=== PATIENT | female | born 1940 | race Caucasian/White ===

== ENCOUNTER 2019-11-17 18:19 | Emergency (ER) | payer MEDICARE, SELFPAY ==
--- NOTE | ~2019-11-17 | XR_ITS ---
EXAMINATION: XR humerus LT INDICATION: Left shoulder pain, initial encounter TECHNIQUE: Two views of the left humerus are obtained. COMPARISON: None available FINDINGS: There is an acute, traumatic, closed, comminuted fracture of the left humeral head extendin g into the proximal shaft of the humerus. Bone alignment at the acromioclavicular joint is normal. No additional acute osseous findings are evident. Soft tissue swelling surrounds the fracture. IMPRESSION: 1. Comminuted fracture of the proximal humeral shaft and humeral head. Reviewed, dictated and finalized at location A.
[2019-11-17 18:29] VITALS: BP 182/49; PULSE 58; RESP 18; TEMP 36.3; O2SAT 99
[2019-11-17 19:19] VITALS: BP 153/60; PULSE 62; RESP 20; O2SAT 99
[2019-11-17] MEDS: IBUPROFEN 600 MG TABLET PO (19:47)
--- NOTE | 2019-11-17 20:46 | ED.UPPEXIN ---
HPI - Extremity Injury (Upper) General Chief Complaint: Extremity Injury, Upper Stated Complaint: L UPPER ARM INJURY S/P FALL Time Seen by Provider: 11/17/19 19:05 Source: patient Mode of arrival: ambulatory Limitations: no limitations History of Present Illness HPI narrative: This is a 71-year-old female that presents emergency department after a fall today with left arm pain. Reports she tripped over her bed skirt and landed on her left arm. Denies hitting her head or loss of consciousness. Since she has had pain in the upper arm and shoulder. Also reports some low back pain that is chronic for her. Denies weakness or numbness. Related Data Allergies Allergy/AdvReac Type Severity Reaction Status Date / Time No Known Allergies Allergy Mild Verified 11/17/19 19:17 Review of Systems Review of Systems: Narrative: CONSTITUTIONAL: Denies fever CARDIOVASCULAR: Denies chest pain RESPIRATORY: Denies dyspnea. MUSCULOSKELETAL: Reports back pain, joint pain, and myalgia. NEUROLOGIC: Denies numbness, or weakness. All systems reviewed & are unremarkable except as noted in HPI and below PMFSH Family History Family History (Updated 08/19/14 @ 10:32 by DOCTOR UNKNOWN) Other Diabetes mellitus Hypertension Social History Social History Smoking status: Never smoker Alcohol intake: current Gender identity (if verbalized by the patient): Female Exam Narrative: Exam Narrative: GENERAL: Well-appearing, well-nourished, and in no acute distress. HEAD: Normocephalic, atraumatic. EYES: PERRLA and EOMI. ENT: Nares clear, no rhinorrhea or epistaxis. Mucous membranes moist. Oropharynx without tonsillar hypertrophy exudate or other lesions. Bilateral TMs pearly ulrich non-bulging NECK: Supple. No adenopathy or masses. No midline spinal tenderness CHEST: Clear to auscultation. No respiratory distress. No wheezes rales or rhonchi HEART: Regular rate and rhythm. No murmur heard. Normal peripheral pulses. BACK: No midline spinal tenderness EXTREMITIES: Normal range of motion, except decreased ROM in the left shoulder due to pain. No edema or erythema. SKIN: Warm, dry, no rash. NEURO: No focal deficits. Alert and oriented x3. PSYCH: Normal mood and affect Course Consultations Consultation #1: Spoke with Dr. High about patient and work-up will follow-up in clinic Date: 11/17/19 Time: 20:53 Vital Signs Vital signs: Vital Signs Temperature 97.4 F L 11/17/19 18:29 Pulse Rate 58 L 11/17/19 18:29 Respiratory Rate 18 11/17/19 18:29 Blood Pressure 182/49 H 11/17/19 18:29 Pulse Oximetry 99 11/17/19 18:29 Temperature 97.4 F L 11/17/19 18:29 Pulse Rate 62 11/17/19 19:19 Respiratory Rate 20 11/17/19 19:19 Blood Pressure 153/60 H 11/17/19 19:19 Pulse Oximetry 99 11/17/19 19:19 MDM - Extremity Injury (Upper) MDM Narrative Medical decision making narrative: Patient presents the emergency department after a fall today with left arm pain. Left humerus x-ray shows a comminuted fracture of the proximal humeral shaft and humeral head. Patient placed in a shoulder immobilizer. She also reported some low back pain. Reports this is chronic for her. Did not want any imaging of her lumbar spine done. Spoke with Dr. High about patient and work-up will follow-up in clinic. Patient is stable and felt appropriate for further outpatient evaluation. She was given warnings to return to the ER Imaging Data Radiologist's impression: ITS Impressions Humerus X-Ray 11/17/19 18:45 IMPRESSION: 1. Comminuted fracture of the proximal humeral shaft and humeral head. Critical Care Time Critical Care Time Critical Care Time: No Discharge Plan Discharge Clinical Impression: Closed comminuted fracture of left humerus Qualifiers: Encounter type: initial encounter Humerus Location: shaft Fracture alignment: displaced Qualified Code(s): S42.352A - Displaced comminuted fracture of shaft of arnaldo
[2019-11-17 20:55] VITALS: BP 148/66; PULSE 62; RESP 20; O2SAT 99
== END 2019-11-17 20:57 | disposition home or self-care (01) ==
PROVIDERS: Emergency Provider Emergency Medicine; PCP Family Medicine Adolescent Medicine
DX: S42.352A Displaced comminuted fracture of shaft of humerus, left arm, initial encounter for closed fracture (principal); W01.0XXA Fall on same level from slipping, tripping and stumbling without subsequent striking against object, initial encounter
CPT/HCPCS: 73060; 99284; A9270

== ENCOUNTER → 2020-02-21 12:07 | Outpatient (CLI) | payer MEDICARE, SELFPAY ==
--- NOTE | ~2020-02-21 | MM_ITS ---
EXAMINATION: MM screening van LT w kranthi HISTORY: Screening mammogram TECHNIQUE: Craniocaudal and mediolateral oblique 3-D tomosynthesis images were obtained and synthetic 2-D images were generated. CAD analysis was submitted and interpreted. COMPARISON: 12/03/2018, 11/14/2017, 10/31/2016 left digital screening mammogram examinations BREAST PARENCHYMAL COMPOSITION: There are scattered areas of fibroglandular density. FINDINGS: There is suggestion of possible interval subtle irregular increased density near the medial subareolar area of the left breast compared to prior examinations. Diagnostic left mammogram and lef t breast ultrasound examination are recommended. IMPRESSION: 1. Subtle interval increased irregular density suggested near the medial subareolar area of the left breast 2. Diagnostic left mammogram and left breast ultrasound examination are recommended. BI-RADS Category 0: Incomplete: Needs additional imaging evaluation. Reviewed, dictated and finalized at location A. IMPRESSION: 1. Subtle interval increased irregular density suggested near the medial subare olar area of the left breast 2. Diagnostic left mammogram and left breast ultrasound examination are recomme nded. BI-RADS Category 0: Incomplete: Needs additional imaging evaluation.
--- NOTE | ~2020-02-21 | DEXA_ITS ---
Bone Density Report Name: Lawanda Chi Age: 79 Sex: Female Ethnicity: White Date of : 1940 Indication: osteopenia; parental hip fracture; height loss; prior fracture; hysterectomy; postmenopausal Referring Provider: HAN MALONEY Study: Bone densitometry was performed. Exam Date: February 21, 2020 Accession number: [id number] Bone Density: Region BMD T-score Z-score Classification AP Spine (L1-L4) 1.154 1.0 3.6 Normal Femoral Neck (Left) 0.564 -2.6 -0.3 Osteoporosis Total Hip (Left) 0.716 -1.8 0.1 Osteopenia Femoral Neck (Right) 0.584 -2.4 -0.2 Osteopenia Total Hip (Right) 0.735 -1.7 0.3 Osteopenia Total Hip Mean 0.726 -1.8 0.2 Osteopenia World Health Organization criteria for BMD impression classify patients as: Normal (T-score at or above -1.0), Osteopenia (T-score between -1.0 and -2.5), or Osteoporosis (T-score at or below -2.5). 10-year Fracture Risk: FRAX not reported because: Some T-score for Spine Total or Hip Total or Femoral Neck at or below -2.5 Previous Exams: Region Exam Age BMD T-score BMD Change BMD Change Date g/cm2 vs Baseline vs Previous AP Spine(L1-L4) 02/21/2020 79 1.154 1.0 0.280* 0.107* 11/14/2017 77 1.046 0.0 0.173* 0.070* 10/28/2015 75 0.976 -0.6 0.102* 0.004 10/23/2013 72 0.972 -0.7 0.098* 0.041* 10/19/2011 70 0.930 -1.1 0.057* 0.020 10/21/2009 68 0.911 -1.2 0.037* 0.037* 09/14/2006 65 0.873 -1.6 Total Hip(Left) 02/21/2020 79 0.716 -1.8 0.023 0.012 11/14/2017 77 0.704 -1.9 0.011 0.002 10/28/2015 75 0.702 -2.0 0.008 0.024 10/23/2013 72 0.679 -2.2 -0.015 -0.100* 10/19/2011 70 0.779 -1.3 0.085* 0.083* 10/21/2009 68 0.696 -2.0 0.002 0.002 09/14/2006 65 0.694 -2.0 Total Hip(Right) 02/21/2020 79 0.735 -1.7 0.015 0.014 11/14/2017 77 0.721 -1.8 0.001 -0.018 10/28/2015 75 0.738 -1.7 0.019 0.027 10/23/2013 72 0.711 -1.9 -0.008 -0.047* 10/19/2011 70 0.758 -1.5 0.038* 0.049* 10/21/2009 68 0.709 -1.9 -0.010 -0.010 09/14/2006 65 0.720 -1.8 *Denotes significance at 95% confidence level, LSC for AP Spine = 0.022 g/cm2, LSC for Total Hip = 0.027 g/cm2 Clinical Information Provided by Patient:
== END ==
PROVIDERS: PCP Family Medicine Adolescent Medicine; Visit Provider Family Medicine Adolescent Medicine
DX: Z12.31 Encounter for screening mammogram for malignant neoplasm of breast (principal); Z78.0 Asymptomatic menopausal state; R92.8 Other abnormal and inconclusive findings on diagnostic imaging of breast; M81.0 Age-related osteoporosis without current pathological fracture; M85.852 Other specified disorders of bone density and structure, left thigh; M85.851 Other specified disorders of bone density and structure, right thigh
CPT/HCPCS: 77063; 77067; 77080

== ENCOUNTER 2020-03-16 11:59 | Outpatient (CLI) | payer MEDICARE, SELFPAY ==
--- NOTE | ~2020-03-16 | MMUS_ITS ---
EXAMINATION: MM diagnostic mammo unilat LT, US breast LT complete HISTORY: Subtle interval increased irregular density suggested near medial subareolar area of left br east on 02/21/2020 screening mammogram TECHNIQUE: Additional 3-D tomosynthesis images of the left breast were performed and synthetic 2-D im ages were generated. CAD analysis was submitted and interpreted. High resolution complete left breast ultrasound was performed. COMPARISON: 02/21/2020 bilateral digital screening mammogram FINDINGS: MAMMOGRAPHIC FINDINGS: No suspicious mass or architectural distortion, malignant calcification, skin thickening or retractio n is detected. ULTRASOUND: No suspicious mass or shadowing is evident. IMPRESSION: 1. No mammographic evidence of malignancy 2. Routine mammographic screening recommended. BI-RADS Category 1: Negative Reviewed, dictated and finalized at location A. IMPRESSION: 1. No mammographic evidence of malignancy 2. Routine mammographic screening recommended. BI-RADS Category 1: Negative
== END 2020-03-16 12:00 | disposition home or self-care (01) ==
LOC: ANHIMG 12:01
PROVIDERS: PCP Family Medicine Adolescent Medicine; Visit Provider Family Medicine Adolescent Medicine
DX: R92.8 Other abnormal and inconclusive findings on diagnostic imaging of breast (principal)
CPT/HCPCS: 76641; 77065

== ENCOUNTER → 2020-07-01 09:39 | Outpatient (CLI) | payer MEDICARE, SELFPAY ==
--- NOTE | ~2020-07-01 | XR_ITS ---
XR lumbar spine 2-3V DATE: 07/01/2020 10:05 INDICATION: Low back pain. No known injury. TECHNIQUE: AP, lateral, coned lateral lumbosacral views COMPARISON: None FINDINGS: There is diffuse osteopenia. There is mild dextro scoliosis of the lumbar spine. There is moderate loss of height biconcavity of T9 vertebral body. There is mild biconcavity of T10 vertebral body. There is mild loss of height and anterior wedging at T11. There is prominent loss of height and anterior wedging at L1 with prominent compression fracture. There is prominent degenerative change at the apophyseal joints in the lower lumbar spine, particular ly L4-5 and L5-S1, with associated grade 1 anterolisthesis at L4-5. There is moderately severe degenerative disc disease at L2-3, L3-4 and L5-S1 in particular. There is associated minimal retrolisthesis at L5-S1. The sacroiliac joints are intact. There is extensive calcification of the abdominal aorta, without evidence of aneurysm. IMPRESSION: Multiple compression fracture deformities of the lower thoracic spine and L1 Diffuse osteopenia Multilevel degenerative disc disease Degenerative change at the apophyseal joints in the lower lumbar and lumbosacral area with associated grade 1 anterolisthesis at L4-5 Reviewed, dictated and finalized at location A. 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
== END ==
PROVIDERS: PCP Family Medicine Adolescent Medicine; Visit Provider Family Medicine Adolescent Medicine
DX: M85.88 Other specified disorders of bone density and structure, other site (principal); M51.36 Other intervertebral disc degeneration, lumbar region; S32.010A Wedge compression fracture of first lumbar vertebra, initial encounter for closed fracture; S22.080A Wedge compression fracture of T11-T12 vertebra, initial encounter for closed fracture; X58.XXXA Exposure to other specified factors, initial encounter
CPT/HCPCS: 72100

== ENCOUNTER → 2021-06-01 11:16 | Outpatient (CLI) | payer MEDICARE, SELFPAY ==
--- NOTE | ~2021-06-01 | MM_ITS ---
EXAMINATION: MM screening van LT w kranthi HISTORY: Screening mammogram TECHNIQUE: Craniocaudal and mediolateral oblique 3-D tomosynthesis images were obtained and synthetic 2-D images were generated. CAD analysis was submitted and interpreted. COMPARISON: 03/16/2020 diagnostic left mammogram and complete left breast ultrasound 02/21/2020, 12/03/2018, 11/14/2017 left screening mammogram examinations BREAST PARENCHYMAL COMPOSITION: There are scattered areas of fibroglandular density. FINDINGS: There is no evidence of suspicious mass, calcification, or architectural distortion to sugg est malignancy in either breast. There has been no suspicious interval change. IMPRESSION: 1. No mammographic evidence of malignancy. 2. Recommend routine screening mammography in one year. BI-RADS Category 1: Negative Reviewed, dictated and finalized at location A. 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
== END ==
PROVIDERS: PCP Family Medicine Adolescent Medicine; Visit Provider Family Medicine Adolescent Medicine
DX: Z12.31 Encounter for screening mammogram for malignant neoplasm of breast (principal)
CPT/HCPCS: 77063; 77067

== ENCOUNTER 2021-11-02 00:18 | Day surgery (SDC) | payer MEDICARE, SELFPAY ==
[2021-10-20 13:31] VITALS: BMI 23.8
[2021-11-02 07:13] VITALS: BP 162/53; PULSE 73; RESP 16; TEMP 36.5; O2SAT 100
[2021-11-02] MEDS: LACTATED RINGERS 1,000 ML 150 ML IV CONT (07:19)
--- NOTE | 2021-11-02 07:24 | WPDGICN ---
Assessment and Plan Assessment and plan (1) Positive colorectal cancer screening using Cologuard test: Code(s): R19.5 - Other fecal abnormalities Status: Acute Assessment and Plan: Patient had positive Cologuard test for this reason screening colonoscopy to be performed today. GI Consult Note Consult date/time: 11/02/21 07:24 HPI: Lawanda Chi is a 81 year old female Presents for colonoscopy. Patient recently found to have positive Cologuard test. She reports that her stools have been somewhat loose. She does report very infrequent bright red blood per rectum that she attributes to hemorrhoids. She denies any abdominal pain. She does report having a benign hyperplastic colon polyp 2003. Most recent colonoscopy 2012 was unremarkable. She presents today for colonoscopy because of positive Cologuard test. Review of Systems Review of Systems: All systems reviewed & are unremarkable except as noted in HPI and below PMFSH Past Medical History Medical History Fracture of proximal end of left humerus Normal colonoscopy 07/15 Due 07/25 Personal history of malignant neoplasm of breast 2009 right Unspecified fracture of upper end of left humerus, subsequent encounter for fracture with routine healing Surgical History Surgical History History of hysterectomy with bilateral oophorectomy 2008 History of right mastectomy 1994 History of tubal ligation 1981 Family History Family History Other Diabetes mellitus Hypertension Social History Social History (Updated 10/28/21 @ 08:20 by Meenu Leger MA) Smoking status: Never smoker Second hand tobacco smoke exposure: No Alcohol intake: never Substance use: never Substance use type: does not use Living arrangements: with family Gender identity (if verbalized by the patient): Female Sexual Orientation (if Verbalized by the Patient): Straight or Heterosexual Spiritual care concerns: No Agree to blood products: Yes Meds Home Medications and Allergies Home Medications Medication Instructions Recorded Confirmed Type simvastatin 20 mg PO DAILY 10/20/21 10/20/21 History denosumab 60 mg/mL subcutaneous 60 mg SUBCUT [id number] 10/27/21 10/27/21 History syringe biotin 5,000 mcg sublingual tablet 5,000 mcg SUBLINGUAL DAILY 10/28/21 History calcium carbonate 600 mg-vitamin 1 tablet PO DAILY 10/28/21 History D3 5 mcg (200 unit) tablet cholecalciferol (vitamin D3) 50 50 mcg PO DAILY 10/28/21 History mcg (2,000 unit) capsule cranberry 400 mg capsule 400 mg PO DAILY 10/28/21 History multivitamin 1 tablet PO DAILY 10/28/21 History zinc 50 mg tablet 50 mg PO DAILY 10/28/21 History Allergies Allergy/AdvReac Type Severity Reaction Status Date / Time meperidine [From Demerol] Allergy Mild Vomiting Verified 11/02/21 07:10 alendronate sodium AdvReac Intermediate Bone pain Verified 11/02/21 07:10 ibandronate sodium AdvReac Intermediate Bone pain Verified 11/02/21 07:10 Vital Signs Vital Signs - 24 hr 11/02/21 07:13 Temperature 97.7 F Pulse Rate 73 Respiratory Rate 16 Blood Pressure 162/53 H Pulse Oximetry 100 Exam Narrative: Physical exam reveals patient be alert. Vital signs stable. HEENT exam is unremarkable. Patient is anicteric. Lungs are clear to auscultation and percussion. Heart is without murmur or extra sounds. Abdominal exam bowel sounds are present soft nontender with no organomegaly. Digital external rectal exam is normal.
--- NOTE | 2021-11-02 08:18 | WPDANESEPPF ---
Anes - Initial Pre Proc Eval Procedure: Operation Date: 11/02/21 08:30 Proposed Procedures p Colonoscopy - Vito Quiroz MD Date/Time: 11/02/21 08:18 Surgeon: Vito Quiroz MD Pre Op Diagnosis: positive cologuard Patient Data Age: 81 Gender: F Height: 1.65 m Weight: 63.1 kg Last Vital Signs Temp 97.7 F 11/02/21 07:13 Pulse 73 11/02/21 07:13 Resp 16 11/02/21 07:13 BP 162/53 H 11/02/21 07:13 Pulse Ox 100 11/02/21 07:13 Allergies Allergy/AdvReac Type Severity Reaction Status Date / Time meperidine [From Demerol] Allergy Mild Vomiting Verified 11/02/21 07:10 alendronate sodium AdvReac Intermediate Bone pain Verified 11/02/21 07:10 ibandronate sodium AdvReac Intermediate Bone pain Verified 11/02/21 07:10 Home Medications Medication Instructions Recorded Confirmed Type simvastatin 20 mg PO DAILY 10/20/21 10/20/21 History denosumab 60 mg/mL subcutaneous 60 mg SUBCUT [id number] 10/27/21 10/27/21 History syringe biotin 5,000 mcg sublingual tablet 5,000 mcg SUBLINGUAL DAILY 10/28/21 History calcium carbonate 600 mg-vitamin 1 tablet PO DAILY 10/28/21 History D3 5 mcg (200 unit) tablet cholecalciferol (vitamin D3) 50 50 mcg PO DAILY 10/28/21 History mcg (2,000 unit) capsule cranberry 400 mg capsule 400 mg PO DAILY 10/28/21 History multivitamin 1 tablet PO DAILY 10/28/21 History zinc 50 mg tablet 50 mg PO DAILY 10/28/21 History Patient hx anesthesia problems: none Family hx anesthesia problems: none Results Review: All pre-operative results and documents have been reviewed as part of the pre-operative evaluation. [facility] Past Medical History Medical History Fracture of proximal end of left humerus Normal colonoscopy 07/15 Due 07/25 Personal history of malignant neoplasm of breast 2009 right Unspecified fracture of upper end of left humerus, subsequent encounter for fracture with routine healing Surgical History Surgical History History of hysterectomy with bilateral oophorectomy 2008 History of right mastectomy 1994 History of tubal ligation 1982 Family History Family History Other Diabetes mellitus Hypertension Social History Social History (Updated 10/28/21 @ 08:20 by Meenu Leger MA) Smoking status: Never smoker Second hand tobacco smoke exposure: No Alcohol intake: never Substance use: never Substance use type: does not use Living arrangements: with family Gender identity (if verbalized by the patient): Female Sexual Orientation (if Verbalized by the Patient): Straight or Heterosexual Spiritual care concerns: No Agree to blood products: Yes Anes - Eval Final PreProcedure Day of Procedure 11/02/21 08:18 Patient weight: normal Heart: regular rate and rhythm Lungs: clear to auscultation Airway: Mallampati scale class II Neurological: alert and oriented Last oral intake: >/= 8 hours ASA classification: II Emergent: no Anesthetic plan: proceed Anesthesia type and monitoring: general GIVS and standard monitoring Results Review: All pre-operative results and documents have been reviewed as part of the pre-operative evaluation. Informed Consent: The patient's anesthetic plan and its attendant risks and benefits were discussed with the patient/family/POA. Questions were solicited and answers provided to the satisfaction of the patient/family/POA.
[2021-11-02 08:51] VITALS: BP 132/48; PULSE 64; RESP 18; O2SAT 100
[2021-11-02 09:01] VITALS: BP 149/55; PULSE 63; RESP 16; O2SAT 100
--- NOTE | 2021-11-02 09:09 | SUR.PHASEII ---
RN provided a follow up appointment with Dr. Mayberry for November 11 at 1:45pm. The patient was provided the appointment time, office address, and office phone number
[2021-11-02 09:11] VITALS: BP 162/55; PULSE 61; RESP 15; O2SAT 100
[2021-11-02 09:25] LABS: Hematocrit 30.5 % (37.0-47.0); Hemoglobin 9.2 g/dL (12.0-15.0); Mean Corpuscular HGB Conc 30.2 g/dl (32-36); Mean Corpuscular Hemoglobin 27.5 pg (26-34); Mean Platelet Volume 9.5 fl (7.4-10.4); Platelet Count Result 319 k/mm3 (150-375); Red Blood Count 3.35 M/mm3 (4.2-5.4); Red Cell Distribution Width 13.2 % (11.5-14.5); White Blood Count 4.9 K/mm3 (4.5-10.0)
[2021-11-02 09:33] LABS: Alanine Aminotransferase 15 U/L (4-35); Albumin Level 3.8 g/dL (3.5-5.1); Alkaline Phosphatase 57 U/L (38-126); Aspartate Amino Transferase 34 U/L (14-36); Bilirubin,Total 0.6 mg/dL (0.2-1.3)
--- NOTE | 2021-11-02 09:49 | SUR.PHASEII ---
Patient's friend became sweaty and reported feel light headed. RN sat the patient's friend down in a wheelchair and brought her juice. Patient denied any history of diabetes, and reported she occasionally gets light headed if she stands too long. Staff monitored the friend and offered take her to the ER, which she refused. Staff offered to call an additional ride to take both the patient and her friend home, and she refused. Patient departed with friend once she reported she was feeling normal again.
[2021-11-02 10:04] LABS: Carcinoembryonic Antigen 7.9 ng/mL (0.0-3.0)
== END 2021-11-02 09:33 | disposition home or self-care (01) ==
PROVIDERS: PCP Family Medicine Adolescent Medicine; Visit Provider Internal Medicine Gastroenterology
PROC: 0DJD8ZZ Inspection of Lower Intestinal Tract, Via Natural or Artificial Opening Endoscopic (ICD-10-PCS; CPT 45378; principal; 2021-11-02 08:30)
DX: C18.3 Malignant neoplasm of hepatic flexure (principal); R19.5 Other fecal abnormalities; Z85.3 Personal history of malignant neoplasm of breast
CPT/HCPCS: 45380; 45381; 36415; 80076; 82378; 85027; 88305; J2704; J7120

== ENCOUNTER 2021-11-16 07:29 | Outpatient (CLI) | payer MEDICARE, SELFPAY ==
--- NOTE | ~2021-11-16 | CT_ITS ---
EXAMINATION: CT abdomen pelvis w con DATE: 11/16/2021 09:55 INDICATION: Malignant neoplasm of colon, unspecified. TECHNIQUE: Computed tomography (CT) of the abdomen and pelvis was performed with 100 mL Omnipaque 300 intravenous contrast. Automated exposure control and iterative reconstruction technique were employe d. The dose-length product was 561.01 mGy-cm. COMPARISON: None. FINDINGS: The visualized portions of the lung bases demonstrate mild atelectasis. No pleural effusion . The heart size is normal. No pericardial effusion. There are cysts in the liver measuring up to 15 mm. The gallbladder, spleen, pancreas, adrenal glands, and kidneys are normal. There is diverticulosi s of the colon without evidence of diverticulitis. There is wall thickening in the transverse colon s panning 5.0 cm. There are no dilated loops of bowel. There are no pathologically enlarged lymph nodes . There is no free intraperitoneal fluid. There is a chronic burst fracture of L1. There is a chronic compression fracture of T11. There is severe lumbar spondylosis. IMPRESSION: 1. Focal wall thickening of transverse colon, consistent with primary adenocarcinoma. No evidence of metastatic disease. Reviewed, dictated and finalized at location B. IMPRESSION: 1. Focal wall thickening of transverse colon, consistent with primary adenocarc inoma. No evidence of metastatic disease.
[2021-11-16 09:13] LABS: Basophils Percent Auto 0.6 % (0.2-1.2); Eosinophils Absolute Auto 0.1 K/mm3 (0-0.3); Eosinophils Percent Auto 1.2 % (0-4.4); Hematocrit 32.7 % (37.0-47.0); Hemoglobin 9.8 g/dL (12.0-15.0); Immature Granulocyte Absolute 0.02 K/mm3 (0.00-0.031); Immature Granulocyte Percent A 0.3 % (0-0.5); Lymphocytes Absolute Auto 1.49 K/mm3 (0.9-3.2); Lymphocytes Percent Auto 21.5 % (18.3-44.2); Mean Corpuscular Hemoglobin 26.6 pg (26-34); Mean Corpuscular Volume 88.9 fl (80-100); Mean Platelet Volume 9.2 fl (7.4-10.4); Monocytes Absolute Auto 0.7 K/mm3 (0.1-0.6); Monocytes Percent Auto 9.7 % (2.6-8.5); Neutrophils Absolute Auto 4.6 K/mm3 (1.3-6.7); Neutrophils Percent Auto 66.7 % (45.5-73.1); Platelet Count Result 334 k/mm3 (150-375); Red Blood Count 3.68 M/mm3 (4.2-5.4); Red Cell Distribution Width 13.7 % (11.5-14.5); White Blood Count 6.9 K/mm3 (4.5-10.0)
[2021-11-16 09:30] LABS: Alanine Aminotransferase 14 U/L (6-35); Alkaline Phosphatase 62 U/L (38-126); Anion Gap 3 mmol/L (8-16); Aspartate Amino Transferase 33 U/L (14-36); Bilirubin,Total 0.5 mg/dL (0.2-1.3); Blood Urea Nitrogen 20 mg/dL (7-17); Calcium 9.3 mg/dL (8.4-10.2); Carbon Dioxide 30 mmol/L (22-30); Chloride 105 mmol/L (98-107); Estimated Glomerular Filt Rate > 60; Glucose 100 mg/dL (65-110); Potassium 4.9 mmol/L (3.4-5.0); Sodium 138 mmol/L (137-145)
--- NOTE | 2021-11-16 09:44 | PCWOUND ---
WOCN NOTE Received order to raven the left and right side of the abdomen for possible ostomy placement for upcoming surgery on 11/18/21. Patient placed in supine and sitting positions to assess abdomen and rectus muscles. Black X placed in the optimal sites and then covered with a Tegaderm dressing. Instructed patient to keep dressings in place and when showering to pat dry. Patient verbalized understanding. Will follow with patient as needed after surgery.
[2021-11-16 09:50] LABS: Estimated Glomerular Filt Rate > 60
== END 2021-11-16 07:30 | disposition home or self-care (01) ==
PROVIDERS: PCP Family Medicine Adolescent Medicine; Visit Provider Surgery
DX: C18.9 Malignant neoplasm of colon, unspecified (principal)
CPT/HCPCS: 36415; 74177; 80053; 85025; 86850; 86900; 86901; Q9967

== ENCOUNTER 2021-11-18 13:47 | Inpatient (IN) | payer MEDICARE, SELFPAY ==
[2021-11-16 08:11] VITALS: BP 153/62; PULSE 62; RESP 14; TEMP 36.8; O2SAT 100; BMI 22.9
--- NOTE | 2021-11-16 08:25 | PC.NURSE ---
Report to the Outpatient Waiting Room, entrance under the green pavilion located off [facility], at time _6:00AM on date __11/18/21 . OR Time: _7:30AM . - You and your visitor will be asked a series of questions to screen for COVID 19 for your protection. - Only one visitor is allowed at this time. - The patient visitor is requested to leave or wait in car when not with patient. - A mask is required within the hospital. Patients may have clear liquids (water, carbonated beverages, clear teas, apple juice) until 3 hours prior to surgery with a maximum of 20 ounces. - No food from midnight until time of surgery - Infants may have breast milk until 4 hours before surgery, formula 6 hours prior to surgery. - Children will be allowed to drink immediately following surgery. If applicable, please bring a bottle or sippy cup to assist with drinking. Juice, water, soda, and popsicles are readily available. For infants on formula, please bring formula the day of surgery. Pacifiers are allowed. Take the following medications with a SIP of water the morning of surgery: ____NONE Medications to discontinue per physician __HOLD ALL VITAMINS/SUPPLEMENTS 3 DAYS PRE-OP Date to take last dose 11/15/21 Please no make-up, nail icelandic, hairspray, perfume, deodorant, or body powder the day of surgery. No jewelry (including any body piercings) or valuables the day of surgery, leave them at home. Please take a shower or bath the night before, or the morning of, surgery with an antibacterial soap. Wear comfortable, loose fitting clothing. Children are encouraged to wear pajamas. - Jewelry must be removed prior to entering the operating room. Rings and piercings that are not removed may be cut off. - The hospital will not accept responsibility for valuables. - Please leave all valuables, including medications, at home the day of surgery. If you are going home after surgery, a licensed courier driver must drive you home. - NO public transportation without another adult. - We recommend that an adult stay with you for 24 hours following discharge. - We also recommend that you do not drive, make important decision, drink alcoholic beverages, or take any drugs that were not prescribed by your health care provider for at least 24 hours after your discharge time. For Pediatric surgeries, we recommend two adults accompany the child home (only one inside the building at this time). Follow any additional instructions given to you from your surgeon. 1. HIBICLENS SHOWER NIGHT BEFORE AND MORNING OF SURGERY 2. ANTIBIOTICS DAY BEFORE SURGERY DIRECTED 3. BOWEL PREP DAY BEFORE SURGERY DIRECTED 4. ENSURE BUNDLE DIRECTED 5. MOBILITY ARCHITECT MANAGER INSTRUCTION If you or anyone in your household have experienced Covid symptoms in the past week, please notify your surgeon or the nurse liaison at the phone number below for possible testing. Telephone instructions given to ___PATIENT and asked if any additional questions and then verbalized understanding. Patient advised to call surgeon office or pre surgery nurse liaison [phone] if any additional questions.
--- NOTE | 2021-11-17 08:05 | WPDANESEPPF ---
Anes - Initial Pre Proc Eval Procedure: Operation Date: 11/18/21 07:30 Proposed Procedures p Laparoscopic Right Hemicolectomy with Possible Colostomy - Tito Mayberry MD Date/Time: 11/17/21 08:05 Surgeon: Tito Mayberry MD Pre Op Diagnosis: colon cancer Patient Data Age: 81 Gender: F Height: 1.66 m Weight: 63.6 kg Last Vital Signs Temp 36.8 C 11/16/21 08:11 Pulse 62 11/16/21 08:11 Resp 14 11/16/21 08:11 BP 153/62 H 11/16/21 08:11 Pulse Ox 100 11/16/21 08:11 Allergies Allergy/AdvReac Type Severity Reaction Status Date / Time alendronate sodium AdvReac Intermediate Bone pain Verified 11/18/21 06:51 ibandronate sodium AdvReac Intermediate Bone pain Verified 11/18/21 06:51 meperidine [From Demerol] AdvReac Mild Vomiting Verified 11/18/21 06:51 Home Medications Medication Instructions Recorded Confirmed Type simvastatin 20 mg PO DAILY 10/20/21 11/17/21 History denosumab 60 mg/mL subcutaneous 60 mg SUBCUT [id number] 10/27/21 11/17/21 History syringe biotin 5,000 mcg sublingual tablet 5,000 mcg SUBLINGUAL DAILY 10/28/21 11/17/21 History calcium carbonate 600 mg-vitamin 1 tablet PO DAILY 10/28/21 11/17/21 History D3 5 mcg (200 unit) tablet cholecalciferol (vitamin D3) 50 50 mcg PO DAILY 10/28/21 11/17/21 History mcg (2,000 unit) capsule cranberry 400 mg capsule 400 mg PO DAILY 10/28/21 11/17/21 History multivitamin 1 tablet PO DAILY 10/28/21 11/17/21 History zinc 50 mg tablet 50 mg PO DAILY 10/28/21 11/17/21 History erythromycin 500 mg tablet 1 g PO .COMPLEX #6 tablet 11/12/21 11/17/21 Rx neomycin 500 mg tablet 1 g PO .COMPLEX #6 tablet 11/12/21 11/17/21 Rx EC/22 - sr, rbbb Patient hx anesthesia problems: none Family hx anesthesia problems: none Results Review: All pre-operative results and documents have been reviewed as part of the pre-operative evaluation. PMFSH Past Medical History Medical History (Updated 11/18/21 @ 06:56 by Darren Bourne MD) Breast CA Fracture of proximal end of left humerus Hepatic flexure mass Major depressive disorder, recurrent, mild Personal history of malignant neoplasm of breast 2009 right Pure hypercholesterolemia, unspecified Unspecified fracture of upper end of left humerus, subsequent encounter for fracture with routine healing Surgical History Surgical History H/O cataract extraction History of hysterectomy with bilateral oophorectomy 2008 History of right mastectomy 1995 History of tubal ligation 1981 Family History Family History Mother Congestive heart failure Father Diabetes mellitus Other Hypertension Social History Social History Smoking status: Never smoker Second hand tobacco smoke exposure: No Alcohol intake: current Alcohol use details: Rarely Substance use: never Substance use type: does not use Living arrangements: alone 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 Gender identity (if verbalized by the patient): Female Sexual Orientation (if Verbalized by the Patient): Straight or Heterosexual Spiritual care concerns: No Agree to blood products: Yes Anes - Eval Final PreProcedure Day of Procedure 11/17/21 08:05 Patient weight: normal Heart: regular rate and rhythm Lungs: clear to auscultation and normal air movement Airway: Mallampati scale class II Neurological: alert and oriented Last oral intake: >/= 8 hours ASA classification: III Emergent: no Anesthetic plan: proceed Anesthesia type and monitoring: general ETT Results Review: All pre-operative results and documents have been reviewed as part of the pre-operative evaluation. Informed Consent: The patient's anesthetic plan and its attendant risks and benefits were discussed with the patient/family/POA. Questions were solici
[2021-11-18] VITALS (18 sets, daily range): BP systolic 142–179; BP diastolic 40–53; PULSE 54–69; RESP 11–18; TEMP 36.1–36.5; O2SAT 94–100; BMI 22.4
[2021-11-18] MEDS: ACETAMINOPHEN 500 MG TABLET 1000 MG PO (07:00)
[2021-11-18] MEDS: ALVIMOPAN 12 MG CAPSULE PO ×2 (07:00→19:51)
[2021-11-18] MEDS: LACTATED RINGERS 1,000 ML 30 ML IV CONT ×2 (07:15→10:52)
[2021-11-18] MEDS: KETOROLAC 15 MG/ML VIAL (*BKC) IV PUSH (07:15)
--- NOTE | 2021-11-18 07:28 | WPDHPUPDATE1 ---
History and Physical Update Update Date/Time: 11/18/21 07:28 History and Physical has been reviewed, including an updated exam of the patient. There are changes in the patient's condition. Pt has tolearated her prep well. Also, the pre-op CT of the abd/pelvis to rule out metastasis showed none, but also that the apparent are of the tumor is to the left of midline in the mid to distal Transverse colon. Risks, benefits, and alternatives have been discussed and questions answered. Patient agrees to proceed with procedure.
[2021-11-18] MEDS: ceFAZolin 2 GM/D5W 50 ML 2 GM/50 ML BAG IVPB (07:42)
[2021-11-18] MEDS: metroNIDAZOLE 500 MG/ISO 100ML 500 MG/100 ML BAG 100 MG IVPB ×3 (08:02→23:57)
--- NOTE | 2021-11-18 09:36 | SUR.OPER ---
Specimen sent as fresh with NOEMY Lechuga to Pathology at 0931. Received by Lorena at 0935.
--- NOTE | 2021-11-18 11:04 | W.PM.PROC2 ---
Procedure Note - Detailed Date of Procedure 11/18/21 Pre-op Diagnosis Transverse colon cancer Post-op Diagnosis Same Procedure Performed Laparoscopic segmental transverse colon resection with anastomosis. Surgeon Tito Mayberry MD Lid[facility] DYE. OR First Asst. Anesthesia General and Local (2 % Xylocaine with epi (30 cc used) ) Indications This patient is a pleasant 81-year-old white female who began having some shortness of breath with exertion and was found to be anemic. Subsequent workup of the anemia included colonoscopy which revealed an apparent transverse colon cancer which was near obstructing, but Dr. Yusuf was able to get past it to examine the cecum. He tattooed the colon on each side of the area of tumor. Therefore, CT scan was done which showed no signs of metastasis in the liver or in the lymph nodes so I recommended that she consider having a complete excision/colectomy of this central transverse colon area. Findings On entering the abdomen we were able to place 3 ports in the lower abdomen nicely spaced to accomplish the laparoscopic procedure. Careful inspection revealed a obvious tumor centered in the mid transverse colon within the upper abdomen. There was obvious injected Naomi ink dye on either side of this. This area of the colon seemed to be fairly mobile and the tumor was not stuck to any of the other intra-abdominal organs. There was one adhesion of some omentum to the medial side of the cecum which was taken down with the LigaSure device. Patient had a normal somewhat retrocecal appendix and a short right colon that quickly turned into the transverse colon just on the underside of her liver. No hernias were identified and no other intra-abdominal abnormalities noted. No abnormalities were noted on the surface of the left or right lobes of the liver. Description of Procedure The patient was placed in the supine position on the Operating Room table with a footboard in place. Following this, after induction of adequate general endotracheal anesthesia by [facility] Anesthesia staff, we carefully clipped and prepped the abdomen. An 18 fr. Sanders catheter was inserted prior to prepping. Drake-gastric tube was inserted by anesthesia staff and placed to suction. Following this, the abdomen was widely draped and then time-out was performed confirming the patient, procedure, and site of surgery. Following this I decided to use the Veress needle technique to enter the abdomen. This was accomplished by 1st placing local anesthetic in an area 2 fingerbreadths inferior to the costal margin on the left well off the midline. A 5 mm incision was made and 2 towel clips applied to each side of the incision and this was elevated. We used the Veress needle and the water drop test to confirm that Veress needle had entered the peritoneal cavity. Once the water dropped freely I connected CO2 gas and we insufflated to 14 mm of mercury pressure CO2 and then removed the Veress needle and applied the 0 degree 5 mm laparoscope through a 5 mm trocar and under direct vision twisted and turned this trocar into the abdomen under direct vision with the laparoscope. This worked well and CO2 gas was connected to the 5 mm port, the trocar removed from it, and the scope placed back in using a 5 mm 0 degree laparoscope. After careful inspection initially of the abdomen I saw no anterior abdominal adhesions so I selected 3 port sites in the lower abdomen and marked them. Local anesthetic was infiltrated into skin at each of the sites. Following this, we carefully placed the additional trocars, all 5 mm. The first was inseted slightly above the pubic bone in the midline. Another one in the right lower quadrant under direct vision with laparoscope, then eventually, a third one was placed in the left lower quadrant in a position so that I had 3 trocars spread across the lower abdomen to use for operating instruments and the scope. These were all placed
[2021-11-18] MEDS: fentaNYL CITRATE INJ (*CRX) 100 MCG/2 ML VIAL 25 MCG IV PUSH ×2 (11:49→12:13)
[2021-11-18] MEDS: ONDANSETRON INJ 4 MG/2 ML VIAL IV PUSH (12:00)
[2021-11-18] MEDS: SCOPOLAMINE 1.5 MG PATCH TRANSDERM (13:35)
--- NOTE | 2021-11-18 13:47 | SUR.PHASEI ---
PATIENT URINE OUTPUT = 90 ML IN 3 HOURS WHILE IN PACU.
--- NOTE | 2021-11-18 14:04 | PC.NURSE ---
This patient, Lawanda Chi, was admitted to Medical Room 261-01. Patient/family oriented to hospital policies and general routines including ID bracelet, bed and alarms, visiting hours, pain management, procedures, bathroom and other care routines, personal items, smoking policy, room service/diet, and visiting hours. Information on how to activate the Rapid Response Team has been discussed. Patient/Family are encouraged to report perceived risks to care and to ask questions if they do not understand what they are told or what they should do.
[2021-11-18] MEDS: LACTATED RINGERS 1,000 ML 100 ML IV CONT ×2 (14:46→23:59)
[2021-11-19] VITALS: BP 138/40; PULSE 55; RESP 18; TEMP 36.3; O2SAT 99
[2021-11-19 04:00] VITALS: BP 155/42; PULSE 61; RESP 18; TEMP 36.4; O2SAT 97
[2021-11-19] MEDS: HYDROcodone/acetaminophen (*CRX) 5-325 MG TABLET 1 TAB PO ×2 (05:09→17:06)
[2021-11-19 06:38] LABS: Basophils Percent Auto 0.1 % (0.2-1.2); Hematocrit 28.7 % (37.0-47.0); Hemoglobin 8.7 g/dL (12.0-15.0); Immature Granulocyte Absolute 0.03 K/mm3 (0.00-0.031); Immature Granulocyte Percent A 0.4 % (0-0.5); Lymphocytes Absolute Auto 0.77 K/mm3 (0.9-3.2); Lymphocytes Percent Auto 11.4 % (18.3-44.2); Mean Corpuscular HGB Conc 30.3 g/dl (32-36); Mean Corpuscular Hemoglobin 26.7 pg (26-34); Mean Platelet Volume 9.5 fl (7.4-10.4); Monocytes Absolute Auto 0.5 K/mm3 (0.1-0.6); Neutrophils Absolute Auto 5.4 K/mm3 (1.3-6.7); Neutrophils Percent Auto 80.1 % (45.5-73.1); Platelet Count Result 298 k/mm3 (150-375); Red Blood Count 3.26 M/mm3 (4.2-5.4); Red Cell Distribution Width 13.8 % (11.5-14.5); White Blood Count 6.8 K/mm3 (4.5-10.0)
[2021-11-19] MEDS: ALVIMOPAN 12 MG CAPSULE PO ×2 (06:48→17:06)
[2021-11-19 06:50] LABS: Anion Gap 6 mmol/L (8-16); Blood Urea Nitrogen 8 mg/dL (7-17); Calcium 7.6 mg/dL (8.4-10.2); Carbon Dioxide 28 mmol/L (22-30); Chloride 105 mmol/L (98-107); Estimated CRCL calculation 51 ml/min; Estimated Glomerular Filt Rate > 60; Glucose 99 mg/dL (65-110); Potassium 3.9 mmol/L (3.4-5.0); Sodium 139 mmol/L (137-145)
[2021-11-19] MEDS: ENOXAPARIN 40 MG/0.4 ML SYRINGE SUB-Q (09:02)
[2021-11-19 09:03] VITALS: RESP 18; O2SAT 98
[2021-11-19] MEDS: PANTOPRAZOLE 40 MG TABLET PO (09:03)
[2021-11-19 12:25] VITALS: BMI 24.5
--- NOTE | 2021-11-19 13:58 | PCNSR ---
On 11/19/21, the student, Yarelis Ramon, provided care and completed [facility] documentation on this patient. I have reviewed the student's documentation and agree with the findings.
[2021-11-19 14:50] VITALS: BP 140/52; PULSE 60; RESP 18; TEMP 36.8; O2SAT 98
--- NOTE | 2021-11-19 15:36 | PM.DS ---
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 Hospital Course: The patient had uneventful hospital course. On postop day 1 she was resting comfortably in bed. She had been up walking in the room. Sanders catheter was removed and she has voided once in the afternoon. She is tolerated initially clear liquids overnight then a full liquid lunch and supper. Incisions are clean and dry and careful home wound instructions were given to the patient. Follow-up labs the morning of postop day 1 were all good the patient is somewhat anemic at hemoglobin of 8.7. Will repeat CBC prior to her follow-up office visit to be done in early December. Status at Discharge Cognitive/behavioral status at discharge: Back to baseline. Functional status at discharge: independent ambulation Overall status at discharge: patient is not back to baseline Time Spent with Patient Time attestation: Total time spent providing and/or coordinating discharge services: 35 min Specific discharge activities: 1. Patient continues on a soft diet for a couple days then advance his to her usual home diet. 2. Patient taken center spirometer home and use it for a few more days 3. Patient to be up walking with her son at home periodically. 4. Patient will get a CBC done several days prior to her follow-up visit in my office. Exam Const: General: cooperative, comfortable, alert and awake Orientation/consciousness: patient oriented x3 HENMT: Head: normal to inspection Mouth: Yes moist mucous membranes Eyes: Sclera: sclerae normal Pupils: Equal, round and reactive pupils present Neck: Neck: normal visual inspection and no JVD Chest: Chest palpation & inspection: normal inspection of the chest Resp: Effort & Inspection: normal respiratory effort Auscultation: clear to auscultation bilaterally Cardio: Jugular venous distension: no JVD Rate: regular rate GI: Inspection: normal to inspection and incision ( periumbilical midline incision clean and dry. port sites okay.) GI Palp: Yes abdominal tenderness ( mild near midline incision) and Yes Soft to palpation Auscultation: normal bowel sounds Other: other laparoscopic port sites clean and dry with surgical glue in place. Neuro: General: patient oriented x3 Cranial nerves: Yes Equal, round and reactive pupils present DS: Data Data Completed and Pending Pending studies at discharge: Pending at discharge 11/18/21 09:19 Surgical [PTH] Routine Surgical [PTH] Routine Labs on day of discharge: Labs from last 24 hours 11/19/21 11/19/21 06:23 06:23 WBC 6.8 RBC 3.26 L Hgb 8.7 L Hct 28.7 L MCV 88.0 MCH 26.7 MCHC 30.3 L RDW 13.8 Plt Count 298 MPV 9.5 Immature Gran % (Auto) 0.4 Neut % (Auto) 80.1 H Lymph % (Auto) 11.4 L Benson % (Auto) 8.0 Eos % (Auto) 0.0 Baso % (Auto) 0.1 L Lymph # (Auto) 0.77 L Benson # (Auto) 0.5 Eos # (Auto) 0.0 Baso # (Auto) 0.0 Abs Immat Gran (auto) 0.03 Absolute Neuts (auto) 5.4 Absolute Nucleated RBC 0.0 Nucleated RBC % 0.0 Sodium 139 Potassium 3.9 Chloride 105 Carbon Dioxide 28 Anion Gap 6 L BUN 8 D Creatinine 0.70 Estim Creat Clear Calc 51 Estimated GFR > 60 Glucose 99 Calcium 7.6 L Discharge Plan Discharge Attending physician on discharge
== END 2021-11-19 18:20 | disposition home or self-care (01) | DRG 331 ==
LOC: ANH2MED 13:51
PROVIDERS: Admitting Provider Surgery; PCP Family Medicine Adolescent Medicine; Visit Provider Surgery
PROC: 0DTL0ZZ Resection of Transverse Colon, Open Approach (ICD-10-PCS; CPT 44160; principal; 2021-11-18 07:30)
DX: C18.4 Malignant neoplasm of transverse colon (principal); E78.00 Pure hypercholesterolemia, unspecified; M81.0 Age-related osteoporosis without current pathological fracture; Z53.31 Laparoscopic surgical procedure converted to open procedure; Z85.3 Personal history of malignant neoplasm of breast; Z98.49 Cataract extraction status, unspecified eye; Z90.710 Acquired absence of both cervix and uterus
CPT/HCPCS: 36415; 74177; 80048; 80053; 85025; 86850; 86900; 86901; 88304; 88305; 88309; A9270; J0330; J0690; J1100; J1170; J1650; J1885; J2405; J2704; J2710; J3010; J7120; Q9967

== ENCOUNTER 2021-12-09 16:10 | Outpatient (CLI) | payer MEDICARE, SELFPAY ==
[2021-12-09 16:37] LABS: Basophils Percent Auto 0.5 % (0.2-1.2); Eosinophils Absolute Auto 0.1 K/mm3 (0-0.3); Eosinophils Percent Auto 2.2 % (0-4.4); Hematocrit 33.1 % (37.0-47.0); Hemoglobin 9.6 g/dL (12.0-15.0); Immature Granulocyte Absolute 0.01 K/mm3 (0.00-0.031); Immature Granulocyte Percent A 0.2 % (0-0.5); Mean Corpuscular Hemoglobin 25.5 pg (26-34); Mean Corpuscular Volume 87.8 fl (80-100); Mean Platelet Volume 9.6 fl (7.4-10.4); Monocytes Absolute Auto 0.6 K/mm3 (0.1-0.6); Monocytes Percent Auto 10.8 % (2.6-8.5); Neutrophils Absolute Auto 3.5 K/mm3 (1.3-6.7); Neutrophils Percent Auto 59.3 % (45.5-73.1); Platelet Count Result 348 k/mm3 (150-375); Red Blood Count 3.77 M/mm3 (4.2-5.4); Red Cell Distribution Width 14.9 % (11.5-14.5); White Blood Count 5.9 K/mm3 (4.5-10.0)
[2021-12-09 16:52] LABS: Hypochromasia 1+ (NORMAL); Ovalocytes 1+ (NORMAL); Platelet Estimate Adequate (Adequate)
[2021-12-09 17:14] LABS: Alanine Aminotransferase 12 U/L (6-35); Albumin Level 4.1 g/dL (3.5-5.1); Alkaline Phosphatase 55 U/L (38-126); Anion Gap 4 mmol/L (8-16); Aspartate Amino Transferase 26 U/L (14-36); Blood Urea Nitrogen 24 mg/dL (7-17); Calcium 8.9 mg/dL (8.4-10.2); Carbon Dioxide 30 mmol/L (22-30); Chloride 105 mmol/L (98-107); Estimated Glomerular Filt Rate 48; Glucose 87 mg/dL (65-110); Potassium 4.2 mmol/L (3.4-5.0); Sodium 139 mmol/L (137-145)
[2021-12-09 17:25] LABS: Carcinoembryonic Antigen 4.9 ng/mL (0.0-3.0)
[2021-12-09 17:26] LABS: Bilirubin,Total 0.3 mg/dL (0.2-1.3)
[2021-12-09 17:33] LABS: Iron 48 ug/dL (37-170)
[2021-12-09 17:48] LABS: Percent Iron Saturation 9 % (20-50)
== END 2021-12-09 16:11 | disposition home or self-care (01) ==
PROVIDERS: PCP Family Medicine Adolescent Medicine; Visit Provider Internal Medicine Hematology & Oncology
DX: D64.9 Anemia, unspecified (principal); C18.9 Malignant neoplasm of colon, unspecified
CPT/HCPCS: 36415; 80053; 82378; 82728; 83540; 83550; 85025

== ENCOUNTER 2022-03-03 07:50 | Outpatient (CLI) | payer MEDICARE, SELFPAY ==
[2022-03-03 08:53] LABS: Basophils Percent Auto 0.4 % (0.2-1.2); Eosinophils Absolute Auto 0.1 K/mm3 (0-0.3); Eosinophils Percent Auto 1.8 % (0-4.4); Hematocrit 43.1 % (37.0-47.0); Hemoglobin 13.7 g/dL (12.0-15.0); Immature Granulocyte Absolute 0.02 K/mm3 (0.00-0.031); Immature Granulocyte Percent A 0.3 % (0-0.5); Lymphocytes Absolute Auto 2.01 K/mm3 (0.9-3.2); Lymphocytes Percent Auto 28.3 % (18.3-44.2); Mean Corpuscular HGB Conc 31.8 g/dl (32-36); Mean Corpuscular Hemoglobin 30.2 pg (26-34); Mean Corpuscular Volume 94.9 fl (80-100); Mean Platelet Volume 10.5 fl (7.4-10.4); Monocytes Absolute Auto 0.6 K/mm3 (0.1-0.6); Monocytes Percent Auto 8.4 % (2.6-8.5); Neutrophils Absolute Auto 4.3 K/mm3 (1.3-6.7); Neutrophils Percent Auto 60.8 % (45.5-73.1); Platelet Count Result 234 k/mm3 (150-375); Red Blood Count 4.54 M/mm3 (4.2-5.4); Red Cell Distribution Width 17.2 % (11.5-14.5); White Blood Count 7.1 K/mm3 (4.5-10.0)
[2022-03-03 09:12] LABS: Alanine Aminotransferase 16 U/L (6-35); Albumin Level 4.4 g/dL (3.5-5.1); Alkaline Phosphatase 60 U/L (38-126); Anion Gap 3 mmol/L (8-16); Aspartate Amino Transferase 30 U/L (14-36); Bilirubin,Total 0.8 mg/dL (0.2-1.3); Blood Urea Nitrogen 19 mg/dL (7-17); Calcium 9.3 mg/dL (8.4-10.2); Carbon Dioxide 30 mmol/L (22-30); Chloride 104 mmol/L (98-107); Estimated Glomerular Filt Rate > 60; Glucose 102 mg/dL (65-110); Potassium 4.5 mmol/L (3.4-5.0); Sodium 137 mmol/L (137-145)
[2022-03-03 09:33] LABS: Iron 110 ug/dL (37-170)
[2022-03-03 09:42] LABS: Percent Iron Saturation 29 % (20-50)
[2022-03-03 10:29] LABS: Carcinoembryonic Antigen 5.2 ng/mL (0.0-3.0)
== END 2022-03-03 07:51 | disposition home or self-care (01) ==
PROVIDERS: PCP Family Medicine Adolescent Medicine; Referring Provider Surgery; Visit Provider Internal Medicine Hematology & Oncology
DX: C18.9 Malignant neoplasm of colon, unspecified (principal); D64.9 Anemia, unspecified
CPT/HCPCS: 36415; 80053; 82378; 83540; 83550; 85025

== ENCOUNTER 2022-03-15 07:38 | Outpatient (CLI) | payer MEDICARE, SELFPAY ==
--- NOTE | ~2022-03-15 | CT_ITS ---
EXAMINATION: CT abdomen pelvis w con INDICATION: Malignant neoplasm of the colon, unspecified TECHNIQUE: Computed tomographic images of the abdomen and pelvis were obtained after the administrati on of 100 cc of Omnipaque 350 intravenous contrast. The dose-length product (DLP) was 487.40 mGy-cm. Automated exposure control and iterative reconstruction technique were employed. COMPARISON: 11/16/2021 FINDINGS: Minimal dependent atelectasis is present in the lung bases. The heart size is normal. There are changes of right mastectomy. Cysts of the liver measure up to 15 mm in the right hepatic lobe. P unctate calcifications in an otherwise normal spleen likely represent healed granulomatous disease. T he pancreas, gallbladder, and adrenal glands are normal. There are changes of interval partial colect susan. The kidneys are unremarkable. A moderate volume of colonic stool is present. There is calcified atherosclerosis of the aorta and many of the other arteries. No pathologically enlarged abdominal or pelvic lymph nodes are identified. There is no free intraperitoneal gas or evidence of bowel obstruct ion. There is severe lumbar spondylosis. There is a chronic burst fracture of L1. There is a chronic compression fracture of T11. IMPRESSION: 1. Changes of interval partial colectomy without evidence of metastatic disease. Reviewed, dictated and finalized at location B. IMPRESSION: 1. Changes of interval partial colectomy without evidence of metastatic disease .
== END 2022-03-15 07:39 | disposition home or self-care (01) ==
PROVIDERS: PCP Family Medicine Adolescent Medicine; Visit Provider Internal Medicine Hematology & Oncology
DX: C18.9 Malignant neoplasm of colon, unspecified (principal)
CPT/HCPCS: 74177; Q9967

== ENCOUNTER → 2022-06-03 13:09 | Outpatient (CLI) | payer MEDICARE, SELFPAY ==
--- NOTE | ~2022-06-03 | DEXA_ITS ---
Bone Density Report Name: SHELDON FOSTER Age: 81 Sex: Female Ethnicity: White Date of : 1940 Indication: osteopenia; monitoring treatment; parental hip fracture; height loss; prior fracture; hysterectomy; postmenopausal Referring Provider: HAN MALONEY Study: Bone densitometry was performed. Exam Date: June 03, 2022 Accession number: [id number] Bone Density: Region BMD T-score Z-score Classification AP Spine (L1, L2) 1.039 0.5 3.1 Normal Femoral Neck (Left) 0.563 -2.6 -0.3 Osteoporosis Total Hip (Left) 0.711 -1.9 0.2 Osteopenia Femoral Neck (Right) 0.580 -2.4 -0.1 Osteopenia Total Hip (Right) 0.719 -1.8 0.3 Osteopenia Total Hip Mean 0.715 -1.9 0.3 Osteopenia World Health Organization criteria for BMD impression classify patients as: Normal (T-score at or above -1.0), Osteopenia (T-score between -1.0 and -2.5), or Osteoporosis (T-score at or below -2.5). 10-year Fracture Risk: FRAX not reported because: Some T-score for Spine Total or Hip Total or Femoral Neck at or below -2.5 Treated for osteoporosis Previous Exams: Region Exam Age BMD T-score BMD Change BMD Change Date g/cm2 vs Baseline vs Previous AP Spine(L1, L2) 06/03/2022 81 1.039 0.5 0.246* -0.006 02/21/2020 79 1.044 0.6 0.252* 0.166* 11/14/2017 77 0.879 -0.9 0.086* 0.048* 10/28/2015 75 0.831 -1.3 0.038* -0.008 10/23/2013 72 0.839 -1.3 0.046* 0.026* 10/19/2011 70 0.813 -1.5 0.020 0.003 10/21/2009 68 0.809 -1.5 0.017 0.017 09/14/2006 65 0.793 -1.7 Total Hip(Left) 06/03/2022 81 0.711 -1.9 0.017 -0.006 02/21/2020 79 0.716 -1.8 0.023 0.012 11/14/2017 77 0.704 -1.9 0.011 0.002 10/28/2015 75 0.702 -2.0 0.008 0.024 10/23/2013 72 0.679 -2.2 -0.015 -0.100* 10/19/2011 70 0.779 -1.3 0.085* 0.083* 10/21/2009 68 0.696 -2.0 0.002 0.002 09/14/2006 65 0.694 -2.0 Total Hip(Right) 06/03/2022 81 0.719 -1.8 -0.001 -0.016 02/21/2020 79 0.735 -1.7 0.015 0.014 11/14/2017 77 0.721 -1.8 0.001 -0.018 10/28/2015 75 0.738 -1.7 0.019 0.027 10/23/2013 72 0.711 -1.9 -0.008 -0.047* 10/19/2011 70 0.758 -1.5 0.038* 0.049* 10/21/2009 68 0.709 -1.9 -0.010 -0.010 09/14/2006 65 0.720 -1.8
== END ==
PROVIDERS: PCP Family Medicine Adolescent Medicine; Visit Provider Family Medicine Adolescent Medicine
DX: Z78.0 Asymptomatic menopausal state (principal); M81.0 Age-related osteoporosis without current pathological fracture; M85.852 Other specified disorders of bone density and structure, left thigh; M85.851 Other specified disorders of bone density and structure, right thigh
CPT/HCPCS: 77080

== ENCOUNTER 2022-06-09 08:22 | Outpatient (CLI) | payer MEDICARE, SELFPAY ==
[2022-06-09 08:38] LABS: Basophils Percent Auto 0.6 % (0.2-1.2); Eosinophils Absolute Auto 0.1 K/mm3 (0-0.3); Hematocrit 42.3 % (37.0-47.0); Hemoglobin 13.9 g/dL (12.0-15.0); Immature Granulocyte Absolute 0.01 K/mm3 (0.00-0.031); Immature Granulocyte Percent A 0.2 % (0-0.5); Lymphocytes Absolute Auto 1.57 K/mm3 (0.9-3.2); Lymphocytes Percent Auto 30.9 % (18.3-44.2); Mean Corpuscular HGB Conc 32.9 g/dl (32-36); Mean Corpuscular Hemoglobin 32.9 pg (26-34); Mean Corpuscular Volume 100.2 fl (80-100); Mean Platelet Volume 10.3 fl (7.4-10.4); Monocytes Absolute Auto 0.5 K/mm3 (0.1-0.6); Monocytes Percent Auto 10.4 % (2.6-8.5); Neutrophils Absolute Auto 2.8 K/mm3 (1.3-6.7); Neutrophils Percent Auto 55.9 % (45.5-73.1); Platelet Count Result 206 k/mm3 (150-375); Red Blood Count 4.22 M/mm3 (4.2-5.4); Red Cell Distribution Width 12.2 % (11.5-14.5); White Blood Count 5.1 K/mm3 (4.5-10.0)
[2022-06-09 09:34] LABS: Cholesterol 146 mg/dL (0-200); HDL Direct 50 mg/dL; Triglycerides 80 mg/dL (<150)
[2022-06-09 09:36] LABS: Alanine Aminotransferase 23 U/L (6-35); Albumin Level 4.4 g/dL (3.5-5.1); Alkaline Phosphatase 60 U/L (38-126); Anion Gap 5 mmol/L (8-16); Aspartate Amino Transferase 41 U/L (14-36); Bilirubin,Total 1.1 mg/dL (0.2-1.3); Blood Urea Nitrogen 17 mg/dL (7-17); Calcium 9.4 mg/dL (8.4-10.2); Carbon Dioxide 34 mmol/L (22-30); Chloride 104 mmol/L (98-107); Estimated Glomerular Filt Rate > 60; Glucose 89 mg/dL (65-110); Potassium 4.3 mmol/L (3.4-5.0); Sodium 143 mmol/L (137-145)
[2022-06-09 09:48] LABS: LDL Cholesterol Direct 67 mg/dL
[2022-06-09 10:14] LABS: Carcinoembryonic Antigen 5.1 ng/mL (0.0-3.0)
== END 2022-06-09 08:23 | disposition home or self-care (01) ==
LOC: ANHLAB 08:23
PROVIDERS: PCP Family Medicine Adolescent Medicine; Visit Provider Internal Medicine Hematology & Oncology
DX: C18.9 Malignant neoplasm of colon, unspecified (principal)
CPT/HCPCS: 36415; 80053; 80061; 82378; 85025

== ENCOUNTER → 2022-07-19 15:07 | Outpatient (CLI) | payer MEDICARE, SELFPAY ==
--- NOTE | ~2022-07-19 | MM_ITS ---
EXAMINATION: MM screening van LT w kranthi HISTORY: Screening left mammogram, history of right mastectomy TECHNIQUE: Craniocaudal and mediolateral oblique 3-D tomosynthesis images were obtained and synthetic 2-D images were generated. CAD analysis was submitted and interpreted. COMPARISON: 06/01/2021, 03/16/2020, 02/21/2020, 12/03/2018 BREAST PARENCHYMAL COMPOSITION: There are scattered areas of fibroglandular density. FINDINGS: No suspicious mass, calcification, or architectural distortion are identified to suggest ma lignancy. There has been no suspicious interval change.. IMPRESSION: 1. No mammographic evidence of malignancy. 2. Recommend routine screening mammography while the patient remains in good health. BI-RADS Category 1: Negative Reviewed, dictated and finalized at location A. L PRECISION MACHINE ASSEMBLER IMPRESSION: 1. No mammographic evidence of malignancy. 2. Recommend routine screening mammography while the patient remains in good he alth. BI-RADS Category 1: Negative
== END ==
PROVIDERS: PCP Family Medicine Adolescent Medicine; Visit Provider Family Medicine Adolescent Medicine
DX: Z12.31 Encounter for screening mammogram for malignant neoplasm of breast (principal)
CPT/HCPCS: 77063; 77067

== ENCOUNTER 2022-09-08 07:50 | Outpatient (CLI) | payer MEDICARE, SELFPAY ==
--- NOTE | ~2022-09-08 | CT_ITS ---
EXAMINATION: CT abdomen pelvis w con DATE: 09/08/2022 08:22 INDICATION: Colon and breast cancer follow-up TECHNIQUE: Computed tomography (CT) of the abdomen and pelvis was performed with 100 CC Omnipaque 350 intravenous contrast. Automated exposure control and iterative reconstruction technique were employe d. Exam dose: 493.49 mGy-cm total exam DLP. COMPARISON: 03/15/2022 CT abdomen pelvis FINDINGS: The lung bases are clear of infiltrate or consolidation. There is minimal atelectasis. Cardiomegaly. No pericardial or pleural effusion. 1.6 cm right hepatic cyst. Much smaller lateral segment left hepatic cysts. The gallbladder is unremarkable. No bile duct or pancreatic duct dilatation. No pancreatic mass lesio n or calcification. Normal splenic size. Normal morphology of the adrenal glands. No renal mass lesion or scarring or urinary tract calculus o r hydroureteronephrosis. The urinary bladder is unremarkable. There is calcification of the thoracic and abdominal aorta; no abdominal aortic aneurysm. Iliac and f emoral calcified atherosclerosis. No intraperitoneal or retroperitoneal or pelvic mass lesion or holland opathy or ascites. There is a suture line of the proximal transverse colon; history of prior colon cancer. No bowel stri cture, bowel wall thickening, obstruction or pneumatosis or intraperitoneal free air is detected. Small sliding hiatal hernia. Chronic prominent burst fracture deformity L1. Chronic compression fracture of T11. Multilevel degenerative disc disease of the lumbar spine and prominent degenerative change at the lum bar apophyseal joints. No suspicious osteolytic or osteoblastic lesion is noted. IMPRESSION: Status post proximal transverse colon resection for history of colon cancer; no recurren t or metastatic malignancy is detected Small sliding hiatal hernia Hepatic cysts Chronic prominent burst fracture of L1, chronic compression fracture of T11 Reviewed, dictated and finalized at Location A. Reviewed, dictated and finalized at location L. MENT MANAGEMENT ANALYST IMPRESSION: Status post proximal transverse colon resection for history of col on cancer; no recurrent or metastatic malignancy is detected Small sliding hiatal hernia Hepatic cysts Chronic prominent burst fracture of L1, chronic compression fracture of T11
[2022-09-08 08:17] LABS: Estimated Glomerular Filt Rate > 60
[2022-09-08 09:06] LABS: Basophils Percent Auto 0.4 % (0.2-1.2); Eosinophils Absolute Auto 0.1 K/mm3 (0-0.3); Eosinophils Percent Auto 1.4 % (0-4.4); Hematocrit 41.9 % (37.0-47.0); Hemoglobin 13.9 g/dL (12.0-15.0); Immature Granulocyte Absolute 0.01 K/mm3 (0.00-0.031); Immature Granulocyte Percent A 0.2 % (0-0.5); Lymphocytes Absolute Auto 1.34 K/mm3 (0.9-3.2); Mean Corpuscular HGB Conc 33.2 g/dl (32-36); Mean Corpuscular Hemoglobin 32.9 pg (26-34); Mean Corpuscular Volume 99.3 fl (80-100); Mean Platelet Volume 10.2 fl (7.4-10.4); Monocytes Absolute Auto 0.5 K/mm3 (0.1-0.6); Monocytes Percent Auto 9.7 % (2.6-8.5); Neutrophils Percent Auto 61.3 % (45.5-73.1); Platelet Count Result 206 k/mm3 (150-375); Red Blood Count 4.22 M/mm3 (4.2-5.4); Red Cell Distribution Width 11.9 % (11.5-14.5)
[2022-09-08 10:04] LABS: Alanine Aminotransferase 23 U/L (6-35); Albumin Level 4.1 g/dL (3.5-5.1); Alkaline Phosphatase 69 U/L (38-126); Anion Gap 5 mmol/L (8-16); Aspartate Amino Transferase 31 U/L (14-36); Bilirubin,Total 1.1 mg/dL (0.2-1.3); Blood Urea Nitrogen 22 mg/dL (7-17); Carbon Dioxide 31 mmol/L (22-30); Chloride 103 mmol/L (98-107); Estimated Glomerular Filt Rate > 60; Glucose 127 mg/dL (65-110); Potassium 4.5 mmol/L (3.4-5.0); Sodium 139 mmol/L (137-145)
[2022-09-08 10:31] LABS: Carcinoembryonic Antigen 5.1 ng/mL (0.0-3.0)
== END 2022-09-08 07:51 | disposition home or self-care (01) ==
PROVIDERS: PCP Family Medicine Adolescent Medicine; Visit Provider Internal Medicine Hematology & Oncology
DX: C18.9 Malignant neoplasm of colon, unspecified (principal); K44.9 Diaphragmatic hernia without obstruction or gangrene; K74.69 Other cirrhosis of liver; S22.080D Wedge compression fracture of T11-T12 vertebra, subsequent encounter for fracture with routine healing; X58.XXXD Exposure to other specified factors, subsequent encounter
CPT/HCPCS: 74177; 80053; 82378; 85025; Q9967

== ENCOUNTER 2022-10-20 00:35 | Day surgery (SDC) | payer MEDICARE, SELFPAY ==
[2022-10-11 13:44] VITALS: BMI 24.0
[2022-10-20 08:37] VITALS: BP 152/50; PULSE 71; RESP 18; TEMP 36.3; O2SAT 99; BMI 24.0
[2022-10-20] MEDS: LACTATED RINGERS 1,000 ML 150 ML IV CONT (08:49)
--- NOTE | 2022-10-20 09:03 | PM.HPGS ---
History of Present Illness History of Present Illness Consent: Risks, benefits, and alternatives have been discussed and questions answered. Patient agrees to proceed with procedure. Chief complaint: history of colon cancer Narrative: Lawanda Chi is a 81 year old female Presents for follow-up colonoscopy. Patient was found to have carcinoma of the colon 1 year ago. This subsequently been resected. No evidence residual disease felt present. Patient reports her bowel habits have returned to normal. Patient denies abdominal pain. She has had no bleeding. Family history significant for several aunts who have had colon cancer. Review of Systems Review of Systems: Review of systems noncontributory. [facility] Past Medical History Medical History (Updated 10/20/22 @ 09:05 by Vito Quiroz MD) Breast CA Encounter for surgical aftercare following surgery on the digestive system Fracture of proximal end of left humerus Hepatic flexure mass Left foot pain Major depressive disorder, recurrent, mild Mucinous adenocarcinoma of colon Personal history of malignant neoplasm of breast 2009 right Positive colorectal cancer screening using Cologuard test Pure hypercholesterolemia, unspecified Unspecified fracture of upper end of left humerus, subsequent encounter for fracture with routine healing Surgical History Surgical History H/O cataract extraction History of colon resection Laparoscopic segmental transverse colon resection with anastomosis 11/18/2021 History of hysterectomy with bilateral oophorectomy 2008 History of right mastectomy 1994 History of tubal ligation 1981 Family History Family History Mother Congestive heart failure Father Diabetes mellitus Other Hypertension Social History Social History Smoking status: Never smoker Second hand tobacco smoke exposure: No Alcohol intake: current Alcohol use details: Rarely Substance use: never Substance use type: does not use Living arrangements: alone 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 Gender identity (if verbalized by the patient): Female Sexual Orientation (if Verbalized by the Patient): Straight or Heterosexual Spiritual care concerns: No Agree to blood products: Yes Meds Home Medications and Allergies Home Medications Medication Instructions Recorded Confirmed Type biotin 5,000 mcg sublingual tablet 5,000 mcg sublingual DAILY 10/28/21 10/20/22 History calcium carbonate 600 mg-vitamin 1 tablet PO DAILY 10/28/21 10/20/22 History D3 5 mcg (200 unit) tablet cholecalciferol (vitamin D3) 50 50 mcg PO DAILY 10/28/21 10/20/22 History mcg (2,000 unit) capsule cranberry 400 mg capsule 400 mg PO DAILY 10/28/21 10/20/22 History multivitamin (Multiple Vitamins 1 tablet PO DAILY 10/28/21 10/20/22 History tablet) zinc 50 mg tablet 50 mg PO DAILY 10/28/21 10/20/22 History ferrous sulfate 325 mg (65 mg 325 mg PO DAILY 04/21/22 10/20/22 History iron) tablet simvastatin 20 mg tablet 20 mg PO DAILY #90 tabs 08/26/22 10/20/22 Rx sodium,potassium,mag sulfates 17.5 See Rx Instructions PO .COMPLEX 09/26/22 10/20/22 Rx gram-3.13 gram-1.6 gram oral soln #354 mL (Suprep Bowel Prep Kit) denosumab 60 mg/mL subcutaneous See Rx Instructions .Route 10/13/22 10/20/22 Rx syringe (Prolia) .COMPLEX #1 mL Allergies Allergy/AdvReac Type Severity Reaction Status Date / Time alendronate sodium AdvReac Intermediate Bone pain Verified 10/20/22 08:33 ibandronate sodium AdvReac Intermediate Bone pain Verified 10/20/22 08:33 meperidine [From Demerol] AdvReac Mild Vomiting Verified 10/20/22 08:33 Vital Signs Vital Signs - 24 hr 10/20/22 08:37 Temperature 97.4 F L Pulse Rate 71 Respiratory Rate 18 Blood Pressure 1
--- NOTE | 2022-10-20 09:04 | P.PNAN_ITS ---
Anes - Initial Pre Proc Eval Procedure: Operation Date: 10/20/22 09:30 Proposed Procedures p Colonoscopy - Vito Quiroz MD Date/Time: 10/20/22 09:04 Surgeon: Vito Quiroz MD Pre Op Diagnosis: malignant neoplasm,Malignant appear colonic mass Patient Data Age: 81 Gender: F Height: 1.63 m Weight: 63.7 kg Last Vital Signs Temp 97.4 F L 10/20/22 08:37 Pulse 71 10/20/22 08:37 Resp 18 10/20/22 08:37 BP 152/50 H 10/20/22 08:37 Pulse Ox 99 10/20/22 08:37 O2 Del Method Room Air 10/20/22 08:37 Allergies Allergy/AdvReac Type Severity Reaction Status Date / Time alendronate sodium AdvReac Intermediate Bone pain Verified 10/20/22 08:33 ibandronate sodium AdvReac Intermediate Bone pain Verified 10/20/22 08:33 meperidine [From Demerol] AdvReac Mild Vomiting Verified 10/20/22 08:33 Home Medications Medication Instructions Recorded Confirmed Type biotin 5,000 mcg sublingual tablet 5,000 mcg sublingual DAILY 10/28/21 10/20/22 History calcium carbonate 600 mg-vitamin 1 tablet PO DAILY 10/28/21 10/20/22 History D3 5 mcg (200 unit) tablet cholecalciferol (vitamin D3) 50 50 mcg PO DAILY 10/28/21 10/20/22 History mcg (2,000 unit) capsule cranberry 400 mg capsule 400 mg PO DAILY 10/28/21 10/20/22 History multivitamin (Multiple Vitamins 1 tablet PO DAILY 10/28/21 10/20/22 History tablet) zinc 50 mg tablet 50 mg PO DAILY 10/28/21 10/20/22 History ferrous sulfate 325 mg (65 mg 325 mg PO DAILY 04/21/22 10/20/22 History iron) tablet simvastatin 20 mg tablet 20 mg PO DAILY #90 tabs 08/26/22 10/20/22 Rx sodium,potassium,mag sulfates 17.5 See Rx Instructions PO .COMPLEX 09/26/22 10/20/22 Rx gram-3.13 gram-1.6 gram oral soln #354 mL (Suprep Bowel Prep Kit) denosumab 60 mg/mL subcutaneous See Rx Instructions .Route 10/13/22 10/20/22 Rx syringe (Prolia) .COMPLEX #1 mL Patient hx anesthesia problems: none Family hx anesthesia problems: none Results Review: All pre-operative results and documents have been reviewed as part of the pre- operative evaluation. [facility] Past Medical History Medical History (Updated 04/21/22 @ 09:11 by Tariq Coleman MD) Breast CA Encounter for surgical aftercare following surgery on the digestive system Fracture of proximal end of left humerus Hepatic flexure mass Left foot pain Major depressive disorder, recurrent, mild Mucinous adenocarcinoma of colon Personal history of malignant neoplasm of breast 2009 right Positive colorectal cancer screening using Cologuard test Pure hypercholesterolemia, unspecified Unspecified fracture of upper end of left humerus, subsequent encounter for fracture with routine healing Surgical History Surgical History H/O cataract extraction History of colon resection Laparoscopic segmental transverse colon resection with anastomosis 11/18/2021 History of hysterectomy with bilateral oophorectomy 2009 History of right mastectomy 1994 History of tubal ligation 1981 Family History Family History Mother Congestive heart failure Father Diabetes mellitus Other
[2022-10-20 09:28] VITALS: BP 137/55; PULSE 63; RESP 17; O2SAT 100
[2022-10-20 09:38] VITALS: BP 149/56; PULSE 55; RESP 15; O2SAT 100
[2022-10-20 09:48] VITALS: BP 152/51; PULSE 56; RESP 22; O2SAT 100
== END 2022-10-20 10:00 | disposition home or self-care (01) ==
PROVIDERS: PCP Family Medicine Adolescent Medicine; Visit Provider Internal Medicine Gastroenterology
PROC: 0DJD8ZZ Inspection of Lower Intestinal Tract, Via Natural or Artificial Opening Endoscopic (ICD-10-PCS; CPT 45378; principal; 2022-10-20 09:30)
DX: Z08 Encounter for follow-up examination after completed treatment for malignant neoplasm (principal); K64.8 Other hemorrhoids; Z85.038 Personal history of other malignant neoplasm of large intestine; E78.00 Pure hypercholesterolemia, unspecified; F33.0 Major depressive disorder, recurrent, mild; Z85.3 Personal history of malignant neoplasm of breast; Z98.0 Intestinal bypass and anastomosis status; Z90.49 Acquired absence of other specified parts of digestive tract; Z90.11 Acquired absence of right breast and nipple
CPT/HCPCS: 45378; J2704; J7120

== ENCOUNTER 2022-12-15 08:24 | Outpatient (CLI) | payer MEDICARE, SELFPAY ==
[2022-12-15 08:55] LABS: Basophils Percent Auto 0.5 % (0.2-1.2); Eosinophils Absolute Auto 0.1 K/mm3 (0-0.3); Eosinophils Percent Auto 1.5 % (0-4.4); Hematocrit 41.9 % (37.0-47.0); Hemoglobin 14.2 g/dL (12.0-15.0); Immature Granulocyte Absolute 0.02 K/mm3 (0.00-0.031); Immature Granulocyte Percent A 0.4 % (0-0.5); Lymphocytes Absolute Auto 1.81 K/mm3 (0.9-3.2); Lymphocytes Percent Auto 32.8 % (18.3-44.2); Mean Corpuscular HGB Conc 33.9 g/dl (32-36); Mean Corpuscular Hemoglobin 33.3 pg (26-34); Mean Corpuscular Volume 98.1 fl (80-100); Mean Platelet Volume 10.2 fl (7.4-10.4); Monocytes Absolute Auto 0.4 K/mm3 (0.1-0.6); Monocytes Percent Auto 7.6 % (2.6-8.5); Neutrophils Absolute Auto 3.2 K/mm3 (1.3-6.7); Neutrophils Percent Auto 57.2 % (45.5-73.1); Platelet Count Result 218 k/mm3 (150-375); Red Blood Count 4.27 M/mm3 (4.2-5.4); Red Cell Distribution Width 11.5 % (11.5-14.5); White Blood Count 5.5 K/mm3 (4.5-10.0)
[2022-12-15 09:58] LABS: Alanine Aminotransferase 22 U/L (6-35); Albumin Level 4.2 g/dL (3.5-5.1); Alkaline Phosphatase 54 U/L (38-126); Anion Gap 5 mmol/L (8-16); Aspartate Amino Transferase 45 U/L (14-36); Bilirubin,Total 1.1 mg/dL (0.2-1.3); Blood Urea Nitrogen 17 mg/dL (7-17); Calcium 9.4 mg/dL (8.4-10.2); Carbon Dioxide 33 mmol/L (22-30); Chloride 103 mmol/L (98-107); Estimated Glomerular Filt Rate > 60; Glucose 97 mg/dL (65-110); Potassium 4.4 mmol/L (3.4-5.0); Sodium 141 mmol/L (137-145)
== END 2022-12-15 08:25 | disposition home or self-care (01) ==
LOC: ANHLAB 08:25
PROVIDERS: PCP Family Medicine Adolescent Medicine; Visit Provider Internal Medicine Hematology & Oncology
DX: C18.9 Malignant neoplasm of colon, unspecified (principal)
CPT/HCPCS: 36415; 80053; 82378; 85025

== ENCOUNTER 2023-04-24 08:44 | Outpatient (CLI) | payer MEDICARE, SELFPAY ==
--- NOTE | ~2023-04-24 | CT_ITS ---
CT of the Abdomen and Pelvis: Indication: Colon cancer Technique: 2.5 mm axial scans were obtained through the abdomen and pelvis following intravenous adm inistration of 100 cc of Omnipaque 350. Dose reduction technique was used on this scan by utilizing a utomated exposure control and iterative reconstruction technique. The dose-length product (DLP) was 4 17.49 mGy-cm. COMPARISON: 09/08/2022 Findings: Scans through the lung bases are unremarkable. The liver, spleen, pancreas, gallbladder, adrenals and kidneys are within normal limits. There are at herosclerotic calcifications of the aorta. No lymphadenopathy. No bowel obstruction or bowel wall thickening. Transverse colonic anastomosis is present. Images through the pelvis were performed. Urinary bladder unremarkable. No pelvic mass evident. No as cites. Stable moderate L1 compression fracture deformity. Impression: No evidence for active malignancy or metastatic disease. No change from prior exam. Stable L1 compression fracture. Reviewed, dictated and finalized at location . Impression: No evidence for active malignancy or metastatic disease. No change from prior e xam. Stable L1 compression fracture.
[2023-04-24 09:10] LABS: Estimated Glomerular Filt Rate > 60
== END 2023-04-24 08:45 | disposition home or self-care (01) ==
PROVIDERS: PCP Family Medicine Adolescent Medicine; Visit Provider Internal Medicine Hematology & Oncology
DX: C18.9 Malignant neoplasm of colon, unspecified (principal)
CPT/HCPCS: 36415; 74177; 80053; 82378; 85025; Q9967

== ENCOUNTER 2023-04-24 09:37 | Outpatient (CLI) | payer MEDICARE, SELFPAY ==
[2023-04-24 09:50] LABS: Basophils Percent Auto 0.4 % (0.2-1.2); Eosinophils Absolute Auto 0.1 K/mm3 (0-0.3); Eosinophils Percent Auto 0.9 % (0-4.4); Hematocrit 42.8 % (37.0-47.0); Hemoglobin 14.1 g/dL (12.0-15.0); Immature Granulocyte Absolute 0.02 K/mm3 (0.00-0.031); Immature Granulocyte Percent A 0.3 % (0-0.5); Lymphocytes Absolute Auto 1.36 K/mm3 (0.9-3.2); Lymphocytes Percent Auto 17.6 % (18.3-44.2); Mean Corpuscular HGB Conc 32.9 g/dl (32-36); Mean Corpuscular Hemoglobin 33.2 pg (26-34); Mean Corpuscular Volume 100.7 fl (80-100); Mean Platelet Volume 10.1 fl (7.4-10.4); Monocytes Absolute Auto 0.6 K/mm3 (0.1-0.6); Monocytes Percent Auto 7.7 % (2.6-8.5); Neutrophils Absolute Auto 5.6 K/mm3 (1.3-6.7); Neutrophils Percent Auto 73.1 % (45.5-73.1); Platelet Count Result 218 k/mm3 (150-375); Red Blood Count 4.25 M/mm3 (4.2-5.4); Red Cell Distribution Width 11.9 % (11.5-14.5); White Blood Count 7.7 K/mm3 (4.5-10.0)
[2023-04-24 12:37] LABS: Alanine Aminotransferase 20 U/L (6-35); Albumin Level 4.4 g/dL (3.5-5.1); Alkaline Phosphatase 60 U/L (38-126); Anion Gap 4 mmol/L (8-16); Aspartate Amino Transferase 31 U/L (14-36); Blood Urea Nitrogen 18 mg/dL (7-17); Calcium 9.7 mg/dL (8.4-10.2); Carbon Dioxide 30 mmol/L (22-30); Chloride 101 mmol/L (98-107); Estimated Glomerular Filt Rate > 60; Glucose 92 mg/dL (65-110); Potassium 4.3 mmol/L (3.4-5.0); Sodium 135 mmol/L (137-145)
[2023-04-24 13:07] LABS: Carcinoembryonic Antigen 6.1 ng/mL (0.0-3.0)
== END 2023-04-24 09:38 | disposition home or self-care (01) ==
PROVIDERS: PCP Family Medicine Adolescent Medicine; Visit Provider Internal Medicine Hematology & Oncology
DX: C18.9 Malignant neoplasm of colon, unspecified (principal)
CPT/HCPCS: 36415; 80053; 82378; 85025

== ENCOUNTER → 2023-08-03 12:38 | Outpatient (CLI) | payer MEDICARE, SELFPAY ==
--- NOTE | ~2023-08-03 | MM_ITS ---
EXAMINATION: MM screening van LT w kranthi HISTORY: Screening TECHNIQUE: Craniocaudal and mediolateral oblique 3-D tomosynthesis images were obtained and synthetic 2-D images were generated. CAD analysis was submitted and interpreted. COMPARISON: Comparison to multiple prior studies sequentially, with oldest reviewed study dated 11/14. BREAST PARENCHYMAL COMPOSITION: Not dense: There are scattered areas of fibroglandular density. FINDINGS: There is no evidence of suspicious mass, calcification, or architectural distortion to sugg est malignancy in the left breast. There has been no suspicious interval change. IMPRESSION: 1. No mammographic evidence of malignancy. 2. Recommend routine screening mammography in one year. BI-RADS Category 1: Negative Reviewed, dictated and finalized at location A. ANICAL ENERGY ENGINEER
== END ==
PROVIDERS: PCP Family Medicine Adolescent Medicine; Visit Provider Family Medicine Adolescent Medicine
DX: Z12.31 Encounter for screening mammogram for malignant neoplasm of breast (principal)
CPT/HCPCS: 77063; 77067

== ENCOUNTER 2023-08-18 07:59 | Outpatient (CLI) | payer MEDICARE, SELFPAY ==
[2023-08-18 08:25] LABS: Basophils Percent Auto 0.6 % (0.2-1.2); Eosinophils Absolute Auto 0.1 K/mm3 (0-0.3); Hematocrit 40.5 % (37.0-47.0); Hemoglobin 13.4 g/dL (12.0-15.0); Immature Granulocyte Absolute 0.01 K/mm3 (0.00-0.031); Immature Granulocyte Percent A 0.2 % (0-0.5); Lymphocytes Absolute Auto 1.54 K/mm3 (0.9-3.2); Lymphocytes Percent Auto 30.6 % (18.3-44.2); Mean Corpuscular HGB Conc 33.1 g/dl (32-36); Mean Corpuscular Hemoglobin 32.3 pg (26-34); Mean Corpuscular Volume 97.6 fl (80-100); Mean Platelet Volume 9.7 fl (7.4-10.4); Monocytes Absolute Auto 0.5 K/mm3 (0.1-0.6); Monocytes Percent Auto 9.3 % (2.6-8.5); Neutrophils Absolute Auto 2.9 K/mm3 (1.3-6.7); Neutrophils Percent Auto 57.3 % (45.5-73.1); Platelet Count Result 210 k/mm3 (150-375); Red Blood Count 4.15 M/mm3 (4.2-5.4); Red Cell Distribution Width 11.9 % (11.5-14.5)
[2023-08-18 09:36] LABS: Cholesterol 151 mg/dL (0-200); HDL Direct 52 mg/dL; Triglycerides 73 mg/dL (<150)
[2023-08-18 09:39] LABS: Alanine Aminotransferase 20 U/L (6-35); Alkaline Phosphatase 64 U/L (38-126); Anion Gap 4 mmol/L (8-16); Aspartate Amino Transferase 46 U/L (14-36); Bilirubin,Total 1.3 mg/dL (0.2-1.3); Blood Urea Nitrogen 17 mg/dL (7-17); Calcium 9.9 mg/dL (8.4-10.2); Carbon Dioxide 31 mmol/L (22-30); Chloride 105 mmol/L (98-107); Estimated Glomerular Filt Rate > 60; Glucose 102 mg/dL (65-110); Potassium 4.7 mmol/L (3.4-5.0); Sodium 140 mmol/L (137-145)
[2023-08-18 09:47] LABS: LDL Cholesterol Direct 84 mg/dL
[2023-08-18 10:06] LABS: Carcinoembryonic Antigen 5.6 ng/mL (0.0-3.0)
== END 2023-08-18 08:00 | disposition home or self-care (01) ==
LOC: ANHLAB 08:01
PROVIDERS: PCP Family Medicine Adolescent Medicine; Visit Provider Internal Medicine Hematology & Oncology
DX: E78.00 Pure hypercholesterolemia, unspecified (principal); I70.0 Atherosclerosis of aorta; C18.9 Malignant neoplasm of colon, unspecified
CPT/HCPCS: 36415; 80053; 80061; 82378; 85025

== ENCOUNTER 2023-12-05 08:53 | Outpatient (CLI) | payer MEDICARE, SELFPAY ==
--- NOTE | ~2023-12-05 | CT_ITS ---
CT of the Abdomen and Pelvis: Indication: Colon cancer Technique: 2.5 mm axial scans were obtained through the abdomen and pelvis following intravenous adm inistration of 100 cc of Omnipaque 350. Dose reduction technique was used on this scan by utilizing a utomated exposure control and iterative reconstruction technique. The dose-length product (DLP) was 5 90.73 mGy-cm. COMPARISON: 04/24/2023 Findings: Scans through the lung bases are unremarkable. Stable hepatic cyst noted. The spleen, pancreas, gallbladder, adrenals and kidneys are within normal limits. There are atherosclerotic calcifications of the aorta. No lymphadenopathy. No bowel obstruction or bowel wall thickening. Colonic anastomosis noted. Images through the pelvis were performed. Urinary bladder unremarkable. No pelvic mass seen. No ascit es. Stable L1 compression fracture. Impression: No significant change from prior exam. No evidence for active malignancy or metastatic disease. Stable L1 compression fracture. Reviewed, dictated and finalized at [facility]. Impression: No significant change from prior exam. No evidence for active malignancy or met astatic disease. Stable L1 compression fracture.
[2023-12-05 09:15] LABS: Estimated Glomerular Filt Rate > 60
== END 2023-12-05 08:54 | disposition home or self-care (01) ==
PROVIDERS: PCP Family Medicine Adolescent Medicine; Referring Provider Internal Medicine Hematology & Oncology; Visit Provider Nurse Practitioner Family
DX: C18.9 Malignant neoplasm of colon, unspecified (principal); M84.48XA Pathological fracture, other site, initial encounter for fracture
CPT/HCPCS: 74177; Q9967

== ENCOUNTER 2024-01-02 08:03 | Outpatient (CLI) | payer MEDICARE, SELFPAY ==
[2024-01-02 08:26] LABS: Basophils Percent Auto 0.3 % (0.2-1.2); Eosinophils Absolute Auto 0.1 K/mm3 (0-0.3); Eosinophils Percent Auto 1.9 % (0-4.4); Hematocrit 42.1 % (37.0-47.0); Hemoglobin 13.8 g/dL (12.0-15.0); Immature Granulocyte Absolute 0.02 K/mm3 (0.00-0.031); Immature Granulocyte Percent A 0.3 % (0-0.5); Lymphocytes Absolute Auto 1.77 K/mm3 (0.9-3.2); Lymphocytes Percent Auto 30.5 % (18.3-44.2); Mean Corpuscular HGB Conc 32.8 g/dl (32-36); Mean Corpuscular Hemoglobin 31.9 pg (26-34); Mean Corpuscular Volume 97.5 fl (80-100); Mean Platelet Volume 10.1 fl (7.4-10.4); Monocytes Absolute Auto 0.5 K/mm3 (0.1-0.6); Monocytes Percent Auto 8.3 % (2.6-8.5); Neutrophils Absolute Auto 3.4 K/mm3 (1.3-6.7); Neutrophils Percent Auto 58.7 % (45.5-73.1); Platelet Count Result 234 k/mm3 (150-375); Red Blood Count 4.32 M/mm3 (4.2-5.4); Red Cell Distribution Width 11.8 % (11.5-14.5); White Blood Count 5.8 K/mm3 (4.5-10.0)
[2024-01-02 10:05] LABS: Iron 147 ug/dL (37-170)
[2024-01-02 10:12] LABS: Alanine Aminotransferase 19 U/L (6-35); Albumin Level 4.4 g/dL (3.5-5.1); Alkaline Phosphatase 60 U/L (38-126); Anion Gap 7 mmol/L (4-12); Aspartate Amino Transferase 33 U/L (14-36); Bilirubin,Total 1.2 mg/dL (0.2-1.3); Blood Urea Nitrogen 19 mg/dL (7-17); Calcium 9.6 mg/dL (8.4-10.2); Carbon Dioxide 30 mmol/L (22-30); Chloride 104 mmol/L (98-107); Estimated Glomerular Filt Rate > 60; Glucose 91 mg/dL (65-110); Potassium 4.3 mmol/L (3.4-5.0); Sodium 141 mmol/L (137-145)
[2024-01-02 10:20] LABS: Percent Iron Saturation 42 % (20-50)
[2024-01-02 10:38] LABS: Carcinoembryonic Antigen 4.4 ng/mL (0.0-3.0)
== END 2024-01-02 08:04 | disposition home or self-care (01) ==
PROVIDERS: Nurse Practitioner Family; PCP Family Medicine Adolescent Medicine; Visit Provider Internal Medicine Hematology & Oncology
DX: C18.9 Malignant neoplasm of colon, unspecified (principal)
CPT/HCPCS: 36415; 80053; 82378; 83540; 83550; 85025

== ENCOUNTER 2024-05-07 08:17 | Outpatient (CLI) | payer MEDICARE, SELFPAY ==
[2024-05-07 08:40] LABS: Basophils Percent Auto 0.3 % (0.2-1.2); Eosinophils Absolute Auto 0.1 K/mm3 (0-0.3); Eosinophils Percent Auto 1.7 % (0-4.4); Hematocrit 41.7 % (37.0-47.0); Hemoglobin 13.9 g/dL (12.0-15.0); Lymphocytes Absolute Auto 1.56 K/mm3 (0.9-3.2); Lymphocytes Percent Auto 26.2 % (18.3-44.2); Mean Corpuscular HGB Conc 33.3 g/dl (32-36); Mean Corpuscular Hemoglobin 32.5 pg (26-34); Mean Corpuscular Volume 97.4 fl (80-100); Mean Platelet Volume 10.2 fl (7.4-10.4); Monocytes Absolute Auto 0.5 K/mm3 (0.1-0.6); Monocytes Percent Auto 8.4 % (2.6-8.5); Neutrophils Absolute Auto 3.8 K/mm3 (1.3-6.7); Neutrophils Percent Auto 63.4 % (45.5-73.1); Platelet Count Result 208 k/mm3 (150-375); Red Blood Count 4.28 M/mm3 (4.2-5.4); Red Cell Distribution Width 11.8 % (11.5-14.5)
[2024-05-07 11:24] LABS: Alanine Aminotransferase 16 U/L (6-35); Albumin Level 4.2 g/dL (3.5-5.1); Alkaline Phosphatase 51 U/L (38-126); Anion Gap 7 mmol/L (4-12); Aspartate Amino Transferase 32 U/L (14-36); Blood Urea Nitrogen 17 mg/dL (7-17); Calcium 9.8 mg/dL (8.4-10.2); Carbon Dioxide 33 mmol/L (22-30); Chloride 101 mmol/L (98-107); Estimated Glomerular Filt Rate > 60; Glucose 89 mg/dL (65-110); Potassium 4.6 mmol/L (3.4-5.0); Sodium 141 mmol/L (137-145)
[2024-05-07 11:50] LABS: Carcinoembryonic Antigen 6.2 ng/mL (0.0-3.0)
== END 2024-05-07 08:18 | disposition home or self-care (01) ==
LOC: ANHLAB 08:18
PROVIDERS: PCP Family Medicine Adolescent Medicine; Visit Provider Internal Medicine Hematology & Oncology
DX: C18.9 Malignant neoplasm of colon, unspecified (principal)
CPT/HCPCS: 36415; 80053; 82378; 85025

== ENCOUNTER 2024-09-12 08:05 | Outpatient (CLI) | payer MEDICARE, SELFPAY ==
--- OUTSIDE RECORDS SUMMARY | 2024-09-12 08:25 | XMS_ITS | Clinical Summary ---
Author Organization [facility] [employer] Address [address] [place] [address] Care Team Providers Care Civil Engineering Intern Name Role Phone Tariq Coleman MD Primary Care Provider +1- [phone] Allergies No known active allergies Medications simvastatin (ZOCOR) 20 mg tablet Take 20 mg by mouth daily. 11/25/2021 Active Prolia 60 mg/mL Syringe 2021 Active Active Problems Problem Noted Date Diagnosed Date Iron deficiency anemia 01/12/2022 Malignant neoplasm of transverse colon Encounters Date Type Department Care Team Description 09/07/2024 External Device Data STL ABSTRACTION Provider, Abstract 09/07/2024 External Device Data STL ABSTRACTION Provider, Abstract 08/21/2024 External Device Data STL ABSTRACTION Provider, Abstract 07/25/2024 External Device Data STL ABSTRACTION Provider, Abstract from Last 3 Months Family History Relation Name Status Comments Father Mother Sister Alive Son 1 Alive Son 2 Alive Social History Tobacco Use Types Packs/Day Years Used Date Smoking Tobacco: Never Smokeless Tobacco: Never Tobacco Cessation:Counseling Given: Not Answered Alcohol Use Standard Drinks/Week Comments Not Currently 0 (1 standard drink = 0.6 oz pur e alcohol) Comments Unknown Sex and Gender Information Value Date Recorded Sex Assigned at Female 01/10/2024 7:42 PM CDT Legal Sex Female 10:12 AM CDT Gender Identity Female 01/10/2024 7:42 PM CDT Sexual Orientation Straight 01/10/2024 7: 42 PM CDT Last Filed Vital Signs Vital Sign Reading Time Taken Comments Blood Pressure 140/63 05/15/2024 2:03 PM MARKET RESEARCH COORDINATOR Pulse 77 05/15/2024 1:58 PM MARKET RESEARCH COORDINATOR Temperature 36.7 C (98 F) 05/15/2024 1:58 PM MARKET RESEARCH COORDINATOR Respiratory Rate 16 05/15/2024 1:58 PM MARKET RESEARCH COORDINATOR Oxygen Saturation 95% 05/15/2024 1:58 PM MARKET RESEARCH COORDINATOR Inhaled Oxygen Concentration - - Weight 63.4 kg (139 lb 12.8 oz) 05/15/2024 1:58 PM MARKET RESEARCH COORDINATOR Height 165.1 cm (5' 5 ) 09/15/2022 3:12 PM CDT Body Mass Index 23.26 09/15/2022 3:12 PM CDT Plan of Treatment Upcoming Encounters Date Type Department Care Team (Late st Contact Info) Description 09/25/2024 2:30 PM CDT Office Visit [facility] Oncology and Hematology [facility] [address] [facility] [address] [place] [address] Donnell Nagel MD [address] [facility] [address] [place] [address] Health Maintenance Due Date Last Done Comments DTAP/TDAP/TD VACCINES (1 - Tdap) 1960 PNEUMOCOCCAL VACCINE 50+ YEARS (1 of 1 - PCV) 10/27/18 92 ZOSTER VACCINE (1 of 2) 10/28/1991 OSTEOPOROSIS SCREENING 2006 RSV VACCINE (60+ or ) (1 - 1-dose 75+ series) 2016 INFLUENZA VACCINE (#1) 2024 Medicare Advantage ([place]) Prev entative Visit/Annual Wellness Visit 07/03/2024 Insurance AETNA PPO [facility] Care Teams Civil Engineering Intern Relationship Specialty Start Date End Date Tariq Coleman MD [address] [address] PCP - General Family Practice 12/09/21
--- OUTSIDE RECORDS SUMMARY | 2024-09-12 08:25 | XMS_ITS | Referral Summary ---
Author Organization [facility] [employer] Address [address] [place] [address] Care Team Providers Care Medical Reimbursement Manager Name Role Phone Tariq Coleman MD Primary Care Provider + Source Comments [facility],non-owned Affiliates and Associated Physician Practices is amultiple site organization consisting of ambulatory clinics and hospital sitesin [place], [place], [place] and [place]. This disclosure is being madepursuant to the Care Everywhere program and may not contain all information available regarding this patient. Last updated 18.[facility] Allergies No known active allergies Medications * Be aware that medications may not be up to date on this document. Alwaysverify current medications with the patient. Medication Sig Dispensed Refills Start Date End Date Status SIMVASTATIN PO Active Social History Tobacco Use Types Packs/Day Years Used Date Smoking Tobacco: Never Smokeless Tobacco: Never Sex and Gender Information Value Date Recorded Sex Assigned at Not on file Gender Identity Not on file Sexual Orientation Not on file Last Filed Vital Signs Vital Sign Reading Time Taken Comments Blood Pressure 118/68 01/05/2019 10:37 AM CDT Pulse 69 01/05/2019 10:37 AM CDT Temperature 36.9 C (98.5 F) 01/05/2019 10:37 AM CDT Respiratory Rate 16 01/05/2019 10:37 AM CDT Oxygen Saturation 97% 01/05/2019 10:37 AM CDT Inhaled Oxygen Concentration - - Weight 68 kg (150 lb) 01/05/2019 10:37 AM CDT Height 170.2 cm (5' 7 ) 01/05/2019 10:37 AM CDT Body Mass Index 23.49 01/05/2019 10:37 AM CDT Plan of Treatment Not on file Care Teams Medical Reimbursement Manager Relationship Specialty Start Date End Date Tariq Coleman MD [address] [address] PCP - General 11/03/21
--- OUTSIDE RECORDS SUMMARY | 2024-09-12 08:26 | XMS_ITS | Clinical Summary ---
Author Organization [facility] [employer] [facility] Address [address] [place] [address] Care Team Providers Care Stereo Plotter Operator Name Role Phone Tariq Coleman MD Primary Care Provider + Source Comments [facility],non-owned Affiliates and Associated Physician Practices is amultiple site organization consisting of ambulatory clinics and hospital sitesin [place], [place], [place] and [place]. This disclosure is being madepursuant to the Care Everywhere program and may not contain all information available regarding this patient. Last updated 18.[facility] Allergies No known active allergies Medications * [...] 01/05/2019 10:37 AM CDT Plan of Treatment Health Maintenance Due Date Last Done Comments BONE DENSITY TESTING 1941 DTAP/TDAP/TD VACCINES (1 - Tdap) 1960 PNEUMOCOCCAL VACCINE 50+ (1 of 1 - PCV) 10/28/1991 ZOSTER VACCINE (1 of 2) 10/28/1991 Respiratory Syncytial Virus (RSV) Vaccine Pt: or over 60 yrs (1 - 1-dose 75+ series) 2016 COVID-19 VACCINE (1 - 2023-2 5 season) 2024 INFLUENZA VACCINE (#1) 2024 DEPRESSION SCREENING 07/03/2024 MEDICARE AWV CALENDAR YEAR 2024 HEPATITIS B VACCINE Aged Out No longe r eligible based on patient's age to complete this topic HIB VACCINE Aged Out No longer eligi ble based on patient's age to complete this topic HPV VACCINE Aged Out No longer eligi ble based on patient's age to complete this topic MENINGOCOCCAL (Group B) VACC INE SHARED DECISION-MAKING Aged Out No longer eligibl e based on patient's age to complete this topic MENINGOCOCCAL GROUPS A/C/Y/W VACCINE Aged Out No longer eligible b ased on patient's age to complete this topic Care Teams Stereo Plotter Operator Relationship Specialty Start Date End Date Tariq Coleman MD [address] [address] [facility] - General 11/03/21
--- OUTSIDE RECORDS SUMMARY | 2024-09-12 08:26 | XMS_ITS | Patient Health Summary ---
Author Organization [facility] [employer] Address [address] [place] [address] Care Team Providers Care Group Work Program Director Name Role Phone Tariq Coleman MD Primary Care Provider + Note from [facility],non-owned Affiliates and Associated Physician Practices is amultiple site organization consisting of ambulatory clinics and hospital sitesin [place], [place], [place] and [place]. This disclosure is being madepursuant to the Care Everywhere program and may not contain all information available regarding this patient. Last updated 18.[facility] [employer] Allergies No known active allergies Medications * Be aware that medications may not be up to date on this document. Alwaysverify current medications with the patient. * SIMVASTATIN PO Social History Tobacco Use Types Packs/Day Years [...] Mass Index 23.49 01/05/2019 10:37 AM CDT Procedures * CULTURE URINE(Performed 01/05/2019) Performed for Acute cystitis with hematuria * URINALYSIS AUTO - POINT OF CARE (AMB) STL(Performed 01/05/2019) Performed for Acute cystitis with hematuria Results * CULTURE URINE (01/05/2019 11:00 AM CDT) Culture [facility] Comment: CULTURE, URINE, ROUTINE MICRO NUMBER: [id number] TEST STATUS: FINAL SPECIMEN SOURCE: URINE, CLEAN CATCH SPECIMEN QUALITY: ADEQUATE RESULT: No Growth Test Performed at: [facility] [address] CLAUDINE BENZ MD Urine URINE SPECIMEN OBTAINED BY CLEAN CATCH PROCEDURE / Unknown 01/05/2019 11:00 AM CDT 01/06/2019 12:15 AM CDT [facility] - MICROBIOLOG Y ORDERABLES [address] [address] * URINALYSIS AUTO - POINT OF CARE (AMB) STL (01/05/2019 10:57 AM CDT) Clarity UA POCT cloudy Color UA POCT yellow Leukocyte UA 70 Negative Nitrite UA POCT negative Negative Urobilinogen UA 0.2 0.1 - 1.0 Protein UA POCT 15 Negative pH UA 6.0 5.0 - 8.0 pH units Blood UA 5-10 Negative Specific [place] UA POCT 1.015 1.002 - 1.030 Ketone UA negative Negative Bilirubin UA POCT negative Negative Glucose UA negative Negative Expiration Date [id number] Lot # [id number] Verified Yes Yes Urine URINE / Unknown 01/05/2019 1 0:57 AM CDT [facility] - POINT OF CA RE ORDERABLES Care Teams Group Work Program Director Relationship Specialty Start Date End Date Tariq Coleman MD [address] [address] PCP - General 11/03/21
[2024-09-12 08:38] LABS: Basophils Percent Auto 0.5 % (0.2-1.2); Eosinophils Absolute Auto 0.2 K/mm3 (0-0.3); Eosinophils Percent Auto 3.2 % (0-4.4); Hematocrit 41.8 % (37.0-47.0); Hemoglobin 13.8 g/dL (12.0-15.0); Immature Granulocyte Absolute 0.01 K/mm3 (0.00-0.031); Immature Granulocyte Percent A 0.2 % (0-0.5); Lymphocytes Absolute Auto 1.51 K/mm3 (0.9-3.2); Lymphocytes Percent Auto 25.1 % (18.3-44.2); Mean Corpuscular Hemoglobin 32.2 pg (26-34); Mean Corpuscular Volume 97.7 fl (80-100); Mean Platelet Volume 10.2 fl (7.4-10.4); Monocytes Absolute Auto 0.5 K/mm3 (0.1-0.6); Monocytes Percent Auto 8.8 % (2.6-8.5); Neutrophils Absolute Auto 3.8 K/mm3 (1.3-6.7); Neutrophils Percent Auto 62.2 % (45.5-73.1); Platelet Count Result 217 k/mm3 (150-375); Red Blood Count 4.28 M/mm3 (4.2-5.4); Red Cell Distribution Width 12.1 % (11.5-14.5)
[2024-09-12 10:37] LABS: Cholesterol 148 mg/dL (0-200); HDL Direct 54 mg/dL; Triglycerides 69 mg/dL (<150)
[2024-09-12 10:47] LABS: Alanine Aminotransferase 18 U/L (6-35); Albumin Level 4.1 g/dL (3.5-5.1); Alkaline Phosphatase 60 U/L (38-126); Anion Gap 5 mmol/L (4-12); Aspartate Amino Transferase 30 U/L (14-36); Bilirubin,Total 1.3 mg/dL (0.2-1.3); Blood Urea Nitrogen 18 mg/dL (7-17); Calcium 9.4 mg/dL (8.4-10.2); Carbon Dioxide 31 mmol/L (22-30); Chloride 105 mmol/L (98-107); Estimated Glomerular Filt Rate > 60; Glucose 93 mg/dL (65-110); Potassium 4.4 mmol/L (3.4-5.0); Sodium 141 mmol/L (137-145)
[2024-09-12 10:48] LABS: LDL Cholesterol Direct 72 mg/dL
== END 2024-09-12 08:06 | disposition home or self-care (01) ==
PROVIDERS: PCP Family Medicine Adolescent Medicine; Visit Provider Internal Medicine Hematology & Oncology
DX: C18.9 Malignant neoplasm of colon, unspecified (principal); E78.00 Pure hypercholesterolemia, unspecified
CPT/HCPCS: 36415; 80053; 80061; 82378; 85025

== ENCOUNTER 2024-09-17 09:06 | Outpatient (CLI) | payer MEDICARE, SELFPAY ==
--- NOTE | ~2024-09-17 | CT_ITS ---
CT of the Abdomen and Pelvis: Indication: Colon cancer Technique: 2.5 mm axial scans were obtained through the abdomen and pelvis following intravenous adm inistration of 100 cc of Omnipaque 350. Dose reduction technique was used on this scan by utilizing a utomated exposure control and iterative reconstruction technique. The dose-length product (DLP) was 3 59.95 mGy-cm. COMPARISON: 12/05/2023 Findings: Scans through the lung bases are unremarkable. Hepatic cyst present. The spleen, pancreas, gallbladder, adrenals and kidneys are within normal limit s. There are atherosclerotic calcifications of the aorta. No lymphadenopathy. No bowel obstruction or bowel wall thickening. There is no evidence to suggest acute appendicitis. Images through the pelvis were performed. Urinary bladder unremarkable. No pelvic mass seen. No ascit es. Chronic L1 compression fracture. Impression: No evidence for active malignancy or metastatic disease. Chronic L1 compression fracture. Reviewed, dictated and finalized at [facility]. Impression: No evidence for active malignancy or metastatic disease. Chronic L1 compression fracture.
--- OUTSIDE RECORDS SUMMARY | 2024-09-17 09:43 | XMS_ITS | Encounter Summary ---
Author Organization [facility] [employer] [facility] Address [address] [place] [address] Care Team Providers Care Glass Embosser Name Role Phone Tariq Coleman MD Primary Care Provider +1- [phone] Encounter Details Date Type Department Care Team (Late Contact Info) Description 09/16/2024 Orders Only [facility] Oncology and Hematology - [address] [place] [address] Donnell Nagel MD [address] [facility] [address] [place] [address] Social History Tobacco Use Types Packs/Day Years Used Date Smoking Tobacco: Never Smokeless Tobacco: Never Alcohol Use Standard Drinks/Week Comments Not Currently 0 (1 standard drink = 0.6 oz pur e alcohol) Comments Unknown Sex and Gender Information Value Date Recorded Sex Assigned at Female 01/10/2024 7:42 PM CDT Legal Sex Female 10:12 AM CDT Gender Identity Female 01/10/2024 7:42 PM CDT Sexual Orientation Straight 01/10/2024 7: 42 PM CDT documented as of this encounter Plan of Treatment Upcoming Encounters Date Type Department Care Team (Late st Contact Info) Description 09/25/2024 2:30 PM CDT Office Visit [facility] Oncology and Hematology - [address] [place] [address] Donnell Nagel MD [address] [facility] [address] [place] [phone] documented as of this encounter Procedures Procedure Name Priority Date/Time Associated Diagnosis Comments COMPREHENSIVE METABOLIC PANEL Routine 09/12/2024 11:22 AM CDT documented in this encounter Results * COMPREHENSIVE METABOLIC PANEL (09/12/2024 11:22 AM CDT) Blood Donnell Nagel MD CHEMISTRY ORDERABLES Final Resu lt documented in this encounter Visit Diagnoses Not on filedocumented in this encounter Care Teams Glass Embosser Relationship Specialty Start Date End Date Tariq Coleman MD [address] [phone] PCP - General Family Practice 12/09/21 documented as of this encounter
--- OUTSIDE RECORDS SUMMARY | 2024-09-17 09:43 | XMS_ITS | Clinical Summary ---
Author Organization [facility] [employer] [facility] Address [address] [place] [address] Care Team Providers Care Store Group Manager Name Role Phone Tariq Coleman MD Primary Care Provider +1- [phone] Allergies No known active allergies Medications simvastatin (ZOCOR) 20 mg tablet Take 20 mg by mouth daily. 11/25/2021 Active Prolia 60 mg/mL Syringe 2021 Active Active Problems Problem Noted Date Diagnosed Date Iron deficiency anemia 01/12/2022 Malignant neoplasm of transverse colon Encounters Date Type Department Care Team Description 09/16/2024 Orders Only [facility] Oncology and Hematology - [address] [facility] [address] [place] [address] Donnell Nagel MD 09/07/2024 External Device Data STL ABSTRACTION Provider, [...] Comments Blood Pressure 140/63 05/15/2024 2:03 PM CERAMIC DESIGN ENGINEER Pulse 77 05/15/2024 1:58 PM CERAMIC DESIGN ENGINEER Temperature 36.7 C (98 F) 05/15/2024 1:58 PM CERAMIC DESIGN ENGINEER Respiratory Rate 16 05/15/2024 1:58 PM CERAMIC DESIGN ENGINEER Oxygen Saturation 95% 05/15/2024 1:58 PM CERAMIC DESIGN ENGINEER Inhaled Oxygen Concentration - - Weight 63.4 kg (139 lb 12.8 oz) 05/15/2024 1:58 PM CERAMIC DESIGN ENGINEER Height 165.1 cm (5' 5 ) 09/15/2022 3:12 PM CDT Body Mass Index 23.26 09/15/2022 3:12 PM CDT Plan of Treatment Upcoming Encounters Date Type Department Care Team (Late st Contact Info) Description 09/25/2024 2:30 PM CDT Office Visit [facility] Oncology and Hematology - Michael [address] [facility] [address] [place] [address] Donnell Nagel MD [address] [facility] [address] [place] [address] Health Maintenance Due Date Last Done Comments DTAP/TDAP/TD VACCINES (1 - Tdap) 1960 PNEUMOCOCCAL VACCINE 50+ YEARS (1 of 1 - PCV) 10/27/18 92 ZOSTER VACCINE (1 of 2) 10/28/1991 OSTEOPOROSIS SCREENING 2006 RSV VACCINE (60+ or ) (1 - 1-dose 75+ series) 2016 INFLUENZA VACCINE (#1) 2024 Medicare [place]age ([place]) Prev entative Visit/Annual Wellness Visit 07/03/2024 Procedures Procedure Name Priority Date/Time Associated Diagnosis Comments COMPREHENSIVE METABOLIC PANEL Routine 09/12/2024 11:22 AM CDT from Last 3 Months Results * COMPREHENSIVE METABOLIC PANEL (09/12/2024 11:22 AM CDT) Blood us Donnell Nagel MD CHEMISTRY ORDERABLES Final Resu lt from Last 3 Months Insurance AETNA PPO M[place] Care Teams Store Group Manager Relationship Specialty Start Date End Date Tariq Coleman MD [address] [place] [phone] PCP - General Family Practice 12/09/21
--- OUTSIDE RECORDS SUMMARY | 2024-09-17 09:43 | XMS_ITS | Clinical Summary ---
Author Organization [facility] [employer] Address [address] [place] [address] Care Team Providers Care Chief Hospital Administrator Name Role Phone Tariq Coleman MD Primary Care Provider + Source Comments [facility] [employer],non-owned Affiliates and Associated Physician Practices is amultiple site organization consisting of ambulatory clinics and hospital sitesin [place], [place], [place]. This disclosure is being madepursuant to the Care Everywhere program and may not contain all information available regarding this patient. Last updated 18.[facility] [employer] Allergies No known active allergies Medications * [...] age to complete this topic Care Teams Chief Hospital Administrator Relationship Specialty Start Date End Date Tariq Coleman MD [address] [address] [facility] - General 11/03/21
== END 2024-09-17 09:07 | disposition home or self-care (01) ==
PROVIDERS: PCP Family Medicine Adolescent Medicine; Visit Provider Internal Medicine Hematology & Oncology
DX: C18.9 Malignant neoplasm of colon, unspecified (principal); S32.010A Wedge compression fracture of first lumbar vertebra, initial encounter for closed fracture; X58.XXXA Exposure to other specified factors, initial encounter
CPT/HCPCS: 74177; Q9967

== ENCOUNTER 2024-10-11 19:38 | Emergency (ER) | payer MEDICARE, SELFPAY ==
[2024-10-11 19:49] VITALS: BP 182/54; PULSE 78; RESP 16; TEMP 36.7; O2SAT 99
--- NOTE | 2024-10-11 20:25 | ED_ITS ---
HPI - Extremity Injury (Upper) General Chief Complaint: Extremity Injury, Upper Stated Complaint: R SHOULDER PAIN/R ARM PAIN Source: patient and RN notes reviewed Mode of arrival: ambulatory Limitations: no limitations History of Present Illness HPI narrative: 83-year-old female presents Express Care complaining right shoulder and right elbow pain. Patient states the pain has been going on for approximately 2 we eks. She denies falling onto her shoulder. Patient said she was pulling on something that was to have a and when she developed the pain. She has been trying zqfj-yth-[id number] medications without relief. She called her primary care provider today and was prescribed diclofenac has taken 1 dose and said that her pain is not better. She denies any numbness or tingling. Pain is worse with range of motion of her shoulder. Patient states that she had since her right elbow. She denies any chest pain, shortness of breath, nausea, or any other symptoms. Related Data Home Medications ?Medication ?Instructions ?Recorded ?Confirmed ?Last Taken ?Type biotin 5,000 mcg sublingual tablet 5,000 mcg sublingual DAILY 10/28/21 10/11/24 10/19/22 09:00 History calcium 600 mg (as 1 tablet PO DAILY 10/28/21 10/11/24 10/19/22 09:00 History carbonate)-vitamin D3 5 mcg (200 unit) tablet cholecalciferol (vitamin D3) 50 50 mcg PO DAILY 10/28/21 10/11/24 10/19/22 09:00 History mcg (2,000 unit) capsule cranberry fruit 400 mg capsule 400 mg PO DAILY 10/28/21 10/11/24 10/19/22 09:00 History multivitamin (Multiple Vitamins 1 tablet PO DAILY 10/28/21 10/11/24 10/19/22 09:00 History tablet) zinc 50 mg tablet 50 mg PO DAILY 10/28/21 10/11/24 11/14/21 History Allergies Allergy/AdvReac Type Severity Reaction Status Date / Time alendronate sodium AdvReac Intermediate Bone pain Verified 10/11/24 19:44 ibandronate sodium AdvReac Intermediate Bone pain Verified 10/11/24 19:44 meperidine (From Demerol) AdvReac Mild Vomiting Verified 10/11/24 19:44 Review of Systems Review of Systems: CONSTITUTIONAL: Denies fever, chills, or sweats. EYES: Denies visual changes, redness, or discharge. ENT: Denies rhinorrhea, congestion, sore throat, or otalgia. CARDIOVASCULAR: Denies chest pain, palpitations, or edema. RESPIRATORY: Denies cough or dyspnea. GASTROINTESTINAL: Denies abdominal pain, nausea, vomiting, or diarrhea. GENITOURINARY: Denies dysuria or hematuria. SKIN: Denies rash or itching. MUSCULOSKELETAL: Denies back pain, joint pain, or myalgia. Positive right shoulder pain. NEUROLOGIC: Denies headache, numbness, or weakness. PSYCHIATRIC: Denies anxiety or depression. All other systems reviewed are negative, except as documented in HPI. 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) Personal history of malignant neoplasm of breast 2009 right Pure hypercholesterolemia, unspecified Major depressive disorder, recurrent, mild Unspecified fracture of upper end of left humerus, subsequent encounter for fracture with routine healing Fracture of proximal end of left humerus Surgical History Surgical History History of colon resection Laparoscopic segmental transverse colon resection with anastomosis 11/18/2021 H/O cataract extraction History of tubal ligation 1981 History of right mastectomy 1994 History of hysterectomy with bilateral oophorectomy 2008 Family History Family History Mother Congestive heart failure Father Diabetes mellitus Other Hypertension Social History Social History Smoking status: Never smoker Second hand tobacco smoke exposure: No Alcohol intake: current Alcohol use details: Rarely Substance use: never Substance use type: does not use Lack of Transportation: No Lack of Food: Never True Current Housing: I Have Housing Concerned About Future Housing: No Difficulty Paying Gas/Electric Bills: No Difficulty Paying for Meds: No Currently Unemployed: No Education: Master's Degree or Higher Difficulty w/ Childcare or Family Care: No Living arrangements: alone 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 There is no relevant family history pertinent to the patient complaint. Exam Narrative: GENERAL: This is a well-nourished, well-developed adult, in no apparent distress. They are non ill-appearing, nontoxic appearing. HEAD: normocephalic, atraumatic. EYES: Sclera clear/white. Vision is grossly intact. EARS: External ears normal, Hearing grossly intact. NOSE: External nose normal THROAT: Mucous membranes moist, NECK: Neck supple, non-ithout lymphadenopathy, masses or thyromegaly. Normal range of motion CARDIOVASCULAR: Regular rate and rhythm without murmurs, gallops, or rubs. RESPIRATORY: Normal respiratory rate. Respiratory effort is nonlabored. No respiratory distress SKIN: warm, Dry, intact with no suspicious lesions or rash, good texture and turgor. NEURO: awake, alert, and oriented to person, place and time. There were no obvious focal neurologic abnormalities. EXTREMITIES: Right shoulder: No obvious deformity, bruising, swelling, redness, or apparent injury. Good range of motion, there is pain with abduction of the shoulder. There is tenderness to palpation to the posterior part of the shoulder. No bony tenderness. Neurovascular status intact distal to injury. Right elbow: No obvious deformity, bruising, swelling, redness or apparent injury. Good range of motion to elbow without pain. No tenderness to palpation. Neurovascular status intact distal injury. Radial pulse 2 +and palpable. BACK: Nontender without deformity. No CVA tenderness. Course Course Level of Care: Express Care Visit Vital Signs Vital signs: Vital Signs Temperature 98.1 F 10/11/24 19:49 Pulse Rate 78 10/11/24 19:49 Respiratory Rate 16 10/11/24 19:49 Blood Pressure 182/54 H 10/11/24 19:49 Pulse Oximetry 99 10/11/24 19:49 Temperature 98.1 F 10/11/24 19:49 Pulse Rate 78 10/11/24 19:49 Respiratory Rate 16 10/11/24 19:49 Blood Pressure 182/54 H 10/11/24 19:49 Pulse Oximetry 99 10/11/24 19:49 Reviewed MDM - Extremity Injury (Upper) MDM Narrative Medical decision making narrative: Symptoms likely related to a strain or tendon/ligament injury. Pain is aggravated with movement. Recommend follow-up with orthopedist for further ev aluation. Continue taking the diclofenac as directed along with Tylenol. Will prescribe Robaxin as needed for muscle spasms. Discussed physical exam findings. Advised supportive measures and signs/symptoms to go to the ER. Pt is appropriate for outpt treatment and f/u. Patient's blood pressure is elevated today, she is asymptomatic. Recommend follow close follow-up with PCP about her blood pressure. Differential Diagnosis Differential diagnosis: Likely other (Shoulder strain, shoulder injury, shoulder fracture) Critical Care Time Critical Care Time Critical Care Time: No Discharge Plan Discharge Clinical Impression: Right shoulder pain Qualifiers: Chronicity: acute Qualified Code(s): M25.511 - Pain in right shoulder Patient Disposition: Home Condition: Stable Instructions: Shoulder Sprain (ED) Additional Instructions: Take the muscle relaxer as directed. Do not take Motrin, ibuprofen or any other NSAIDs while taking diclofenac. You may take a 1000 mg of Tylenol (2 extra- strength tablets) every 6-8 hours for pain. Do not take more than 4000 mg of Tylenol in a day. You may get ltup-yvu-thsmzha lidocaine patches for pain and may leave those on your skin for up to 12 hours. You may use icy hot or Biofreeze as well for comfort. He may apply ice or heat to the affected area 20 minutes at a time. Please follow-up with your orthopedist or PCP for further evaluation. Do not drive or operate heavy machinery, drink alcohol, or take any other sedatives while taking muscle relaxers as a may make you drowsy. Go to the emergency department for any change in condition or other concerns. Patient Language: Latvian Prescriptions: New methocarbamol 750 mg tablet 750 mg PO TID 5 Days Qty: 15 0RF No Action zinc 50 mg tablet 50 mg PO DAILY multivitamin [Multiple Vitamins] Tablet 1 tablet PO DAILY calcium carbonate-vitamin D3 600 mg-5 mcg (200 unit) tablet 1 tablet PO DAILY biotin 5,000 mcg tablet, sublingual 5,000 mcg sublingual DAILY cholecalciferol (vitamin D3) 50 mcg (2,000 unit) capsule 50 mcg PO DAILY cranberry fruit 400 mg capsule 400 mg PO DAILY Rx Instructions: administer with a meal Prolia 60 mg/mL syringe See Rx Instructions .ROUTE .COMPLEX Qty: 1 4RF Dose Instruction: TO BE ADMINISTERED IN PHYSICIAN'S OFFICE. INJECT ONE SYRINGE SUBCUTANEOUSLY ONCE EVERY 6 MONTHS. REFRIGERATE. USE WITHIN 14 DAYS ONCE AT ROOM TEMPERATURE. Rx Instructions: TO BE ADMINISTERED IN PHYSICIAN'S OFFICE. INJECT ONE SYRINGE SUBCUTANEOUSLY ONCE EVERY 6 MONTHS. REFRIGERATE. USE WITHIN 14 DAYS ONCE AT ROOM TEMPERATURE. simvastatin 20 mg tablet 20 mg PO DAILY Qty: 90 3RF diclofenac sodium 75 mg tablet,delayed release (DR/EC) 75 mg PO BID Qty: 60 1RF Follow-up/Referrals: Rui Martinez MD [Physician] - Tariq Coleman MD [Primary Care Provider] - Time of Disposition: 20:09
== END 2024-10-11 20:13 | disposition home or self-care (01) ==
PROVIDERS: PCP Family Medicine Adolescent Medicine
DX: M25.511 Pain in right shoulder (principal); E78.00 Pure hypercholesterolemia, unspecified; Z85.3 Personal history of malignant neoplasm of breast; Z90.11 Acquired absence of right breast and nipple
CPT/HCPCS: 99213; G0463

== ENCOUNTER 2024-10-29 10:05 | Outpatient (CLI) | payer MEDICARE, SELFPAY ==
--- NOTE | ~2024-10-29 | DEXA_ITS ---
Bone Density Report Name: SHELDON FOSTER Age: 84 Sex: Female Ethnicity: White Date of : 1940 Indication: postmenopausal; screening for osteoporosis; parental hip fracture; height loss; cancer; hysterectomy; Referring Provider: HAN MALONEY Study: Bone densitometry was performed. Exam Date: October 29, 2024 Accession number: [id number] Bone Density: Region BMD T-score Z-score Classification AP Spine(L1, L2, L3) 1.165 1.3 4.1 Normal Femoral Neck (Left) 0.580 -2.4 0.0 Osteopenia Total Hip (Left) 0.730 -1.7 0.5 Osteopenia Femoral Neck (Right) 0.566 -2.6 -0.1 Osteoporosis Total Hip (Right) 0.731 -1.7 0.5 Osteopenia Total Hip Mean 0.731 -1.7 0.5 Osteopenia World Health Organization criteria for BMD impression classify patients as: Normal (T-score at or above -1.0), Osteopenia (T-score between -1.0 and -2.5), or Osteoporosis (T-score at or below -2.5). 10-year Fracture Risk: FRAX not reported because: Some T-score for Spine Total or Hip Total or Femoral Neck at or below -2.5 Clinical Information Provided by Patient: Parent has had a hip fracture Has used the following medications: Actonel (i.e. risedronate), Boniva (i.e. ibandronate), Fosamax (i.e. alendronate), HRT (i.e. estrogen/hormone therapy), Prolia (i.e. denosumab), Vitamin D, Calcium, TAMOXIFEN Has the following medical conditions: Cancer, Hysterectomy, COLON AND BREAST CANCER Patient maximum height was 67 Menopause Age: 44 Drinks caffeinated beverages Onset of menses at age 14 Number of children 2 Impression: The patient has osteoporosis, based on the Right Femoral Neck T-score. The patient has risk factors, including: parental hip fracture. Discussion: INCREASED RISK OF FRACTURE. BONE DENSITY IS UNDESIRABLY LOW AT ONE OR MORE SKELETAL SITES, CONSISTENT WITH POSTMENOPAUSAL OSTEOPOROSIS. This patient's lowest T-score meets the World Health Organization's (WHO) criteria for osteoporosis at one or more sites (T-score -2.5 or below). In untreated patients, the risk of osteoporotic fracture increases approximately two-fold for each 1.0 SD decrease in T-score. Low bone density is not the only risk factor for fracture; also consider factors such as patient's age, frailty or poor health, risk of falling, risk of injury, previous osteoporotic fracture, family history of osteoporosis, cigarette smoking, low body weight, etc. Not everyone with low bone mineral density has osteoporosis; osteomalacia and other metabolic bone disorders should also be considered. Patients who have osteoporosis should be evaluated for specific diseases and conditions (secondary causes) that may cause or contribute to bone loss. The [place] Association of Clinical Endocrinologists (AACE) and National Osteoporosis Foundation (NOF) recommend pharmacologic intervention for all postmenopausal women whose T-score is in this range. The patient should follow a healthful lifestyle (good nutrition with adequate calcium and vitamin D, and appropriate weight-bearing exercise). Follow-Up: Consider a repeat BMD and Vertebral Fracture Assessment (VFA) exam in 2 years or sooner if medically necessary, to reassess this patient's status. Reported by: KINGSTON on 10/29/2024 10:56:00 AM. Reviewed, dictated and finalized at location A.
--- OUTSIDE RECORDS SUMMARY | 2024-10-29 11:15 | XMS_ITS | Clinical Summary ---
Author Organization [facility] Address [address] [place] [address] Care Team Providers Care Wildlife Rehabilitator Name Role Phone Tariq Coleman MD Primary Care Provider +1- [phone] Allergies No known active allergies Medications simvastatin (ZOCOR) 20 mg tablet Take 20 mg by mouth daily. 11/25/2021 Active Prolia 60 mg/mL Syringe 2021 Active Active Problems Problem Noted Date Diagnosed Date Iron deficiency anemia 01/12/2022 Malignant neoplasm of transverse colon 2 Encounters Date Type Department Care Team Description 09/25/2024 2:30 PM CDT Office Visit [facility] Oncology and Hematology [facility] [address] [place] [id number] Donnell Nagel MD Malignant neoplasm of colon, unspecified part of colon (CMS/HCC) (Primary Dx) 09/18/2024 External Device Data STL ABSTRACTION Provider, Abstract 09/16/2024 Orders Only [facility] Oncology and Hematology [facility] [address] [place] [id number] Donnell Nagel MD 09/07/2024 External Device Data [...] Sign Reading Time Taken Comments Blood Pressure 159/76 09/25/2024 2:02 PM CDT Pulse 82 09/25/2024 1:59 PM CDT Temperature 36.4 C (97.5 F) 09/25/2024 1:59 PM CDT Respiratory Rate 15 09/25/2024 1:59 PM CDT Oxygen Saturation 95% 09/25/2024 1:59 PM CDT Inhaled Oxygen Concentration - - Weight 61.5 kg (135 lb 9.6 oz) 09/25/2024 1:59 P M CDT Height 165.1 cm (5' 5 ) 09/15/2022 3:12 PM CDT Body Mass Index 22.57 09/15/2022 3:12 PM CDT Plan of Treatment Upcoming Encounters Date Type Department Care Team (Late st Contact Info) Description 04/02/2025 2:15 PM CDT Office Visit [facility] Oncology and Hematology - [place] [address] [facility] [address] [place] [address] Donnell Nagel MD [address] [facility] [address] [place] [address] Health Maintenance Due Date Last Done Comments DTAP/TDAP/TD VACCINES (1 - Tdap) 1960 PNEUMOCOCCAL VACCINE 50+ YEARS (1 of 1 - PCV) 10/27/18 92 ZOSTER VACCINE (1 of 2) 10/28/1991 OSTEOPOROSIS SCREENING 2006 RSV VACCINE (60+ or ) (1 - 1-dose 75+ series) 2016 INFLUENZA VACCINE (#1) 2024 Procedures Procedure Name Priority Date/Time Associated Diagnosis Comments COMPREHENSIVE METABOLIC PANEL Routine 09/12/2024 11:22 AM CDT from Last 3 Months Results * COMPREHENSIVE METABOLIC PANEL (09/12/2024 11:22 AM CDT) Blood Donnell Nagel MD CHEMISTRY ORDERABLES Final Resu lt from Last 3 Months Insurance [employer] PPO [place] Care Teams Wildlife Rehabilitator Relationship Specialty Start Date End Date Tariq Coleman MD PCP - General Family Practice 12/09/21
--- OUTSIDE RECORDS SUMMARY | 2024-10-29 11:15 | XMS_ITS | Clinical Summary ---
Author Organization [facility] Address [address] [place] [address] Care Team Providers Care Packager Head Name Role Phone Tariq Coleman MD Primary Care Provider + Source Comments [facility],non-owned Affiliates and Associated Physician Practices is amultiple site organization consisting of ambulatory clinics and hospital sitesin [place], [place], [place] and [place]. This disclosure is being madepursuant to the Care Everywhere program and may not contain all information available regarding this patient. Last updated 18.[facility] Allergies No known active allergies Medications * Be aware that medications may not be up to date on this document. Alwaysverify current medications with the patient. Medication Sig Dispense Quantity Refills Last Filled Start D ate End Date Status SIMVASTATIN PO Activ e Social History Tobacco Use Types Packs/Day Years Used Date Smoking Tobacco: Never Smokeless Tobacco: Never Comments No Sex and Gender Information Value Date Recorded Sex Assigned at Not on file Legal Sex Female 10:11 AM CDT Gender Identity Not on file Sexual Orientation [...] - 1-dose 75+ series) 2016 COVID-19 VACCINE ( - 2023-2 5 season) 2024 DEPRESSION SCREENING 07/03/2024 INFLUENZA VACCINE (Season Ended) 2025 HEPATITIS B VACCINE Aged Out No longe [...] on patient's age to complete this topic Insurance [facility] MANAGED MEDICARE ADV [employer] Care Teams Packager Head Relationship Specialty Start Date End Date Tariq Coleman MD [address] [address] PCP - General 11/03/21
== END 2024-10-29 10:06 | disposition home or self-care (01) ==
PROVIDERS: PCP Family Medicine Adolescent Medicine; Visit Provider Family Medicine Adolescent Medicine
DX: Z78.0 Asymptomatic menopausal state (principal); M85.852 Other specified disorders of bone density and structure, left thigh; M85.851 Other specified disorders of bone density and structure, right thigh; M81.0 Age-related osteoporosis without current pathological fracture
CPT/HCPCS: 77080

== ENCOUNTER 2025-03-27 08:21 | Outpatient (CLI) | payer MEDICARE, SELFPAY ==
--- OUTSIDE RECORDS SUMMARY | 2025-03-27 08:28 | XMS_ITS | Clinical Summary ---
Author Organization [facility] Address [address] [place] [address] Care Team Providers Care Ball Mill Operator Name Role Phone Tariq Coleman MD Primary Care Provider + Source Comments [facility],non-owned Affiliates and Associated Physician Practices is amultiple site organization consisting of ambulatory clinics and hospital sitesin [place], [place], [place] and [place]. This disclosure is being madepursuant to the Care Everywhere program and may not contain all information available regarding this patient. Last updated 18.[facility] Allergies No known active allergies Medications * [...] 10:37 AM CDT Height 170.2 cm (5' 7) 01/05/2019 10:37 AM CDT Body Mass Index 23.49 01/05/2019 10:37 AM CDT Plan of Treatment Health Maintenance Due Date Last Done Comments BONE DENSITY TESTING 1940 DTAP/TDAP/TD VACCINES (1 - Tdap) 1960 PNEUMOCOCCAL VACCINE 50+ (1 of 1 - PCV) 10/28/1991 ZOSTER VACCINE (1 of 2) 10/28/1991 Respiratory Syncytial Virus (RSV) Vaccine Pt: or over 60 yrs (1 - 1-dose 75+ series) 2016 DEPRESSION SCREENING 07/03/2024 COVID-19 VACCINE (1 - 2023-2 5 season) 2025 INFLUENZA VACCINE (#1) 2025 HEPATITIS B VACCINE Aged Out No [...] patient's age to complete this topic Insurance [facility] MANAGED MEDICARE ADV [employer] Care Teams Ball Mill Operator Relationship Specialty Start Date End Date Tariq Coleman MD [address] [address] PCP - General 11/03/21
--- OUTSIDE RECORDS SUMMARY | 2025-03-27 08:28 | XMS_ITS | Clinical Summary ---
Author Organization [facility] Address [address] [place] [address] Care Team Providers Care Cotton Picking Machine Operator Name Role Phone Tariq Coleman MD Primary Care Provider +1- [phone] Allergies No known active allergies Medications simvastatin (ZOCOR) 20 mg tablet Take 20 mg by mouth daily. 11/25/2021 Active Prolia 60 mg/mL Syringe 2021 Active Active Problems Problem Noted Date Diagnosed Date Iron deficiency anemia 01/12/2022 Malignant neoplasm of transverse colon Encounters Date Type Department Care Team Description 02/04/2025 External Device Data STL ABSTRACTION Provider, Abstract 01/15/2025 External Device Data STL ABSTRACTION Provider, Abstract 01/15/2025 External Device Data STL ABSTRACTION Provider, Abstract [...] P M CDT Height 165.1 cm (5' 5) 09/15/2022 3:12 PM CDT Body Mass Index 22.57 09/15/2022 3:12 PM CDT Plan of Treatment Upcoming Encounters Date Type Department Care Team (Late st Contact Info) Description 04/02/2025 2:15 PM CDT Office Visit [facility] Oncology and Hematology - [place] [address] [facility] [address] [address] Donnell Nagel MD [address] [facility] [address] [place] [address] Health Maintenance Due Date Last Done Comments DTAP/TDAP/TD VACCINES (1 - Tdap) 1960 PNEUMOCOCCAL VACCINE 50+ YEARS (1 of 1 - PCV) 10/27/18 92 ZOSTER VACCINE (1 of 2) 10/28/1991 OSTEOPOROSIS SCREENING 2006 RSV VACCINE (60+ or ) (1 - 1-dose 75+ series) 2016 [place] Prev entative Visit/Annual Wellness Visit 07/03/2024 INFLUENZA VACCINE (#1) 2025 Insurance [employer] PPO [facility] Care Teams Cotton Picking Machine Operator Relationship Specialty Start Date End Date Tariq Coleman MD PCP - General Family Practice 12/09/21
[2025-03-27 08:34] LABS: Hematocrit 40.3 % (37.0-47.0); Hemoglobin 13.3 g/dL (12.0-15.0); Immature Granulocyte Percent A 0.2 % (0-0.5); Lymphocytes Absolute Auto 1.20 K/mm3 (0.9-3.2); Mean Corpuscular HGB Conc 33.0 g/dl (32-36); Mean Corpuscular Hemoglobin 32.5 pg (26-34); Mean Corpuscular Volume 98.5 fl (80-100); Nucleated Red Blood Cells Absolute Auto 0.000 K/mm3 (0.0-0.012); Nucleated Red Blood Cells Perc 0.0 % (0.0-0.2); Platelet Count Result 209 k/mm3 (150-375); Red Blood Count 4.09 M/mm3 (4.2-5.4); White Blood Count 5.0 K/mm3 (4.5-10.0)
[2025-03-27 09:59] LABS: Alanine Aminotransferase 16 U/L (6-35); Albumin Level 4.2 g/dL (3.5-5.1); Alkaline Phosphatase 58 U/L (38-126); Anion Gap 6 mmol/L (4-12); Aspartate Amino Transferase 34 U/L (14-36); Bilirubin,Total 0.9 mg/dL (0.2-1.3); Blood Urea Nitrogen 18 mg/dL (7-17); Calcium 9.4 mg/dL (8.4-10.2); Carbon Dioxide 31 mmol/L (22-30); Chloride 103 mmol/L (98-107); Estimated Glomerular Filt Rate > 60; Glucose 95 mg/dL (65-110); Potassium 4.0 mmol/L (3.4-5.0); Sodium 140 mmol/L (137-145); Total Protein 7.3 g/dL (6.3-8.2)
[2025-03-27 10:35] LABS: Carcinoembryonic Antigen 6.4 ng/mL (0.0-3.0)
== END 2025-03-27 08:22 | disposition home or self-care (01) ==
LOC: ANHLAB 08:22
PROVIDERS: PCP Family Medicine Adolescent Medicine; Visit Provider Internal Medicine Hematology & Oncology
DX: C18.9 Malignant neoplasm of colon, unspecified (principal)
CPT/HCPCS: 36415; 80053; 82378; 85025

== ENCOUNTER 2025-05-19 11:40 | Emergency (ER) | payer MEDICARE, SELFPAY ==
[2025-05-19 11:51] VITALS: BP 143/53; PULSE 69; RESP 16; TEMP 36.2; O2SAT 99
--- NOTE | 2025-05-19 12:07 | ED.FEMALEGU ---
HPI - Female Genitourinary General Chief complaint: Urogenital-Female Stated complaint: Uti Symptoms Time Seen by Provider: 05/19/25 12:07 Source: patient and RN notes reviewed Mode of arrival: ambulatory Limitations: no limitations History of Present Illness HPI Narrative: 84-year-old female presents with concern for urinary tract infection. She reports frequency and urgency. She denies back pain, abdominal pain, nausea, vomiting, body aches, chills, sweats. MD elicited complaint: UTI Related Data Home Medications ?Medication ?Instructions ?Recorded ?Confirmed ?Last Taken ?Type calcium 600 mg (as 1 tablet PO DAILY 10/28/21 05/08/25 10/19/22 09:00 History carbonate)-vitamin D3 5 mcg (200 unit) tablet cholecalciferol (vitamin D3) 50 50 mcg PO DAILY 10/28/21 05/08/25 10/19/22 09:00 History mcg (2,000 unit) capsule cranberry fruit 400 mg capsule 400 mg PO DAILY 10/28/21 05/08/25 10/19/22 09:00 History multivitamin (Multiple Vitamins 1 tablet PO DAILY 10/28/21 05/08/25 10/19/22 09:00 History tablet) zinc 50 mg tablet 50 mg PO DAILY 10/28/21 05/08/25 11/14/21 History Allergies Allergy/AdvReac Type Severity Reaction Status Date / Time alendronate sodium AdvReac Intermediate Bone pain Verified 05/19/25 12:01 ibandronate sodium AdvReac Intermediate Bone pain Verified 05/19/25 12:01 meperidine (From Demerol) AdvReac Mild Vomiting Verified 05/19/25 12:01 Review of Systems Review of Systems: CONSTITUTIONAL: Denies malaise, chills, sweats, or fever. CARDIOVASCULAR: Denies chest pain, palpitations, or edema. RESPIRATORY: Denies cough or dyspnea. GASTROINTESTINAL: Denies abdominal pain, nausea, vomiting, diarrhea GENITOURINARY: Reports frequency and urgency. Denies dysuria, suprapubic pressure. Denies flank pain or hematuria. SKIN: Denies rash or itching. MUSCULOSKELETAL: Denies back pain or myalgia. 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) Personal history of malignant neoplasm of breast 2009 right Pure hypercholesterolemia, unspecified Major depressive disorder, recurrent, mild Unspecified fracture of upper end of left humerus, subsequent encounter for fracture with routine healing Fracture of proximal end of left humerus Surgical History Surgical History History of colon resection Laparoscopic segmental transverse colon resection with anastomosis 11/18/2021 H/O cataract extraction History of tubal ligation 1981 History of right mastectomy 1994 History of hysterectomy with bilateral oophorectomy 2008 Family History Family History Mother Congestive heart failure Father Diabetes mellitus Other Hypertension Social History Social History Smoking status: Never smoker Second hand tobacco smoke exposure: No Alcohol intake: current Alcohol use details: Rarely Substance use: never Substance use type: does not use Lack of Transportation: No Lack of Food: Never True Current Housing: I Have Housing Concerned About Future Housing: No Difficulty Paying Gas/Electric Bills: No Difficulty Paying for Meds: No Currently Unemployed: No Education: Master's Degree or Higher Difficulty w/ Childcare or Family Care: No Living arrangements: alone 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 There is no relevant family history pertinent to the presenting complaint Exam Narrative: GENERAL: Well-appearing, well-nourished, and in no acute distress. HEAD: Normocephalic. EYES: PERRLA, conjunctivae clear. NECK: Supple. No lymphadenopathy CHEST: Clear to auscultation. No respiratory distress. HEART: Regular rate and rhythm. ABDOMEN: Soft, nontender upon palpation, nondistended, no palpable or pulsatile masses, no guarding. No CVA tenderness SKIN: Warm, dry, no rash. NEURO: Alert and oriented x3. PSYCH: Normal mood and affect Course Course Emergency Course: Patient is aware of diagnosis, understands and agrees to treatment plan. Anticipatory guidance given. Patient agrees to follow-up as directed and is aware of reasons to seek care at the emergency department. Portions of this record may have been created with voice recognition software Level of Care: Express Care Visit Vital Signs Vital signs: Vital Signs Temperature 97.2 F L 05/19/25 11:51 Pulse Rate 69 05/19/25 11:51 Respiratory Rate 16 05/19/25 11:51 Blood Pressure 143/53 H 05/19/25 11:51 Pulse Oximetry 99 05/19/25 11:51 Temperature 97.2 F L 05/19/25 11:51 Pulse Rate 69 05/19/25 11:51 Respiratory Rate 16 05/19/25 11:51 Blood Pressure 143/53 H 05/19/25 11:51 Pulse Oximetry 99 05/19/25 11:51 Reviewed. MDM - Female Genitourinary MDM Narrative Medical decision making narrative: Exam findings and UA show no acute concerns or changes; patient is non-toxic appearing and is in no distress. Patient is appropriate for outpatient treatment and follow-up. Differential Diagnosis Differential diagnosis: Likely urinary tract infection and cystitis Critical Care Time Critical Care Time Critical Care Time: No Discharge Plan Discharge Clinical Impression: Urinary tract infection Patient Disposition: Home Condition: Stable Instructions: Antibiotic Form, Urinary Tract Infection in Older Adults (ED) Additional Instructions: We will send a urine culture to the lab; if the culture identifies an organism that the prescribed antibiotic will not treat, you will receive a phone call from an urgent care staff member and an appropriate antibiotic will be prescribed. -Your symptoms should begin to improve within a day of starting antibiotics. But you should finish all the antibiotic pills you get. Otherwise your infection might come back. -Also recommend: increase water intake. Tylenol/ibuprofen as needed for pain or fever -Follow-up with your primary care provider for urine recheck or seek ER visit if condition worsens with high fever, nausea, vomiting and severe back pain. Patient Language: [place] Prescriptions: New amoxicillin-pot clavulanate 875-125 mg tablet 1 tablet PO Q12H 10 Days Qty: 20 0RF No Action zinc 50 mg tablet 50 mg PO DAILY multivitamin [Multiple Vitamins] Tablet 1 tablet PO DAILY calcium carbonate-vitamin D3 600 mg-5 mcg (200 unit) tablet 1 tablet PO DAILY cholecalciferol (vitamin D3) 50 mcg (2,000 unit) capsule 50 mcg PO DAILY cranberry fruit 400 mg capsule 400 mg PO DAILY Rx Instructions: administer with a meal citalopram 10 mg tablet 10 mg PO DAILY Qty: 90 0RF Prolia 60 mg/mL syringe See Rx Instructions .ROUTE .COMPLEX Qty: 1 4RF Dose Instruction: TO BE ADMINISTERED IN PHYSICIAN'S OFFICE. INJECT ONE SYRINGE SUBCUTANEOUSLY ONCE EVERY 6 MONTHS. REFRIGERATE. USE WITHIN 14 DAYS ONCE AT ROOM TEMPERATURE. Rx Instructions: TO BE ADMINISTERED IN PHYSICIAN'S OFFICE. INJECT ONE SYRINGE SUBCUTANEOUSLY ONCE EVERY 6 MONTHS. REFRIGERATE. USE WITHIN 14 DAYS ONCE AT ROOM TEMPERATURE. simvastatin 20 mg tablet 20 mg PO DAILY Qty: 90 3RF diclofenac sodium 75 mg tablet,delayed release (DR/EC) 75 mg PO BID Qty: 60 3RF Follow-up/Referrals: Tariq Coleman MD [Primary Care Provider, [facility]] Time of Disposition: 12:11
[2025-05-19 12:17] LABS: EDUAAPPEAR Clear; EDUABILI Negative (Negative); EDUABLOOD Negative (Negative); EDUACOLOR1 Dark; EDUAGLUCOSE Negative (Negative); EDUAKETONE Trace (Negative); EDUALEUKO Negative (Negative); EDUANITRATE Positive (Negative); EDUAPH 6.0; EDUAPROTEIN 2+ (Negative); EDUASPGRAVITY 1.020; EDUAUROBILI 0.2
== END 2025-05-19 12:13 | disposition home or self-care (01) ==
PROVIDERS: Emergency Provider Nurse Practitioner; PCP Family Medicine Adolescent Medicine
DX: N39.0 Urinary tract infection, site not specified (principal); E78.00 Pure hypercholesterolemia, unspecified; F33.9 Major depressive disorder, recurrent, unspecified; Z85.038 Personal history of other malignant neoplasm of large intestine; Z85.3 Personal history of malignant neoplasm of breast; Z90.11 Acquired absence of right breast and nipple
CPT/HCPCS: 81003; 87086; 87186; 99213; G0463

== ENCOUNTER 2025-06-08 08:17 | Emergency (ER) | payer MEDICARE, SELFPAY ==
--- NOTE | 2025-06-08 08:21 | ED.GENADULT ---
HPI - General Adult General Chief complaint: Urogenital-Female Stated complaint: Uti Symptoms Time Seen by Provider: 06/08/25 08:20 Source: patient Mode of arrival: ambulatory Limitations: no limitations History of Present Illness HPI narrative: 84-year-old female patient presents to [facility] with complaints of urinary symptoms. Patient was seen here on 05/19 for similar symptoms and was prescribed Augmentin for her symptoms. Patient states did not have any symptoms while on the antibiotic but as soon as she stops the antibiotics she felt what she described as a twinge down there that would come and go but last night got significantly worse with increase for urinary frequency and pain with urination and lower abdominal pain. Denies fevers body aches or chills. Denies any low back pain. Denies any confusion. Related Data Home Medications ?Medication ?Instructions ?Recorded ?Confirmed ?Last Taken ?Type calcium 600 mg (as 1 tablet PO DAILY 10/28/21 05/08/25 10/19/22 09:00 History carbonate)-vitamin D3 5 mcg (200 unit) tablet cholecalciferol (vitamin D3) 50 50 mcg PO DAILY 10/28/21 05/08/25 10/19/22 09:00 History mcg (2,000 unit) capsule cranberry fruit 400 mg capsule 400 mg PO DAILY 10/28/21 05/08/25 10/19/22 09:00 History multivitamin (Multiple Vitamins 1 tablet PO DAILY 10/28/21 05/08/25 10/19/22 09:00 History tablet) zinc 50 mg tablet 50 mg PO DAILY 10/28/21 05/08/25 11/14/21 History Allergies Allergy/AdvReac Type Severity Reaction Status Date / Time alendronate sodium AdvReac Intermediate Bone pain Verified 06/08/25 08:42 ibandronate sodium AdvReac Intermediate Bone pain Verified 06/08/25 08:42 meperidine (From Demerol) AdvReac Mild Vomiting Verified 06/08/25 08:42 Review of Systems Review of Systems: CONSTITUTIONAL: Denies fever, chills, or sweats. EYES: Denies visual changes, redness, or discharge. ENT: Denies rhinorrhea, congestion, sore throat, or otalgia. CARDIOVASCULAR: Denies chest pain, palpitations, or edema. RESPIRATORY: Denies cough or dyspnea. GASTROINTESTINAL: Denies abdominal pain, nausea, vomiting, or diarrhea. GENITOURINARY: Positive dysuria denies gross hematuria. SKIN: Denies rash or itching. MUSCULOSKELETAL: Denies back pain, joint pain, or myalgia. NEUROLOGIC: Denies headache, numbness, or weakness. PSYCHIATRIC: Denies anxiety or depression. 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) Personal history of malignant neoplasm of breast 2009 right Pure hypercholesterolemia, unspecified Major depressive disorder, recurrent, mild Unspecified fracture of upper end of left humerus, subsequent encounter for fracture with routine healing Fracture of proximal end of left humerus Surgical History Surgical History History of colon resection Laparoscopic segmental transverse colon resection with anastomosis 11/18/2021 H/O cataract extraction History of tubal ligation 1981 History of right mastectomy 1994 History of hysterectomy with bilateral oophorectomy 2008 Family History Family History Mother Congestive heart failure Father Diabetes mellitus Other Hypertension Social History Social History Smoking status: Never smoker Second hand tobacco smoke exposure: No Alcohol intake: current Alcohol use details: Rarely Substance use: never Substance use type: does not use Lack of Transportation: No Lack of Food: Never True Current Housing: I Have Housing Concerned About Future Housing: No Difficulty Paying Gas/Electric Bills: No Difficulty Paying for Meds: No Currently Unemployed: No Education: Master's Degree or Higher Difficulty w/ Childcare or Family Care: No Living arrangements: alone 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 There is no relevant family history pertinent to the presenting complaint. Exam Narrative: GENERAL: Well-appearing, well-nourished, and in no acute distress. HEAD: Normocephalic, atraumatic. EYES: PERRLA and EOMI. ENT: Nares clear, no rhinorrhea or epistaxis. Mucous membranes moist. NECK: Supple. No lymphadenopathy CHEST: Clear to auscultation. No respiratory distress. HEART: Regular rate and rhythm. No murmur heard. Normal peripheral pulses. ABDOMEN: Soft, nontender, nondistended, normal active bowel sounds. EXTREMITIES: Normal range of motion. No edema. SKIN: Warm, dry, no rash. NEURO: No focal deficits. Alert and oriented x3. Course Course Level of Care: Express Care Visit Vital Signs Vital signs: Vital Signs Temperature 36.8 C 06/08/25 08:26 Pulse Rate 66 06/08/25 08:26 Respiratory Rate 16 06/08/25 08:26 Blood Pressure 147/42 H 06/08/25 08:26 Pulse Oximetry 100 06/08/25 08:26 Temperature 36.8 C 06/08/25 08:26 Pulse Rate 66 06/08/25 08:26 Respiratory Rate 16 06/08/25 08:26 Blood Pressure 147/42 H 06/08/25 08:26 Pulse Oximetry 100 06/08/25 08:26 vital signs reviewed. MDM MDM Narrative Medical decision making narrative: Plan care patient is to discharge home with oral antibiotic. We will try Bactrim this time since she did not respond well to the Augmentin even though the culture shows it should have been susceptible. Discussed with patient that we will go by her previous cultures. Encouraged her to increase her water intake and follow up with her doctor if symptoms do not improve. Discussed with patient if she has symptoms such as fevers, increased abdominal pain low back pain or confusion she needs go the ER for further evaluation. Patient verbalized understanding denies any other questions or concerns at this time. Differential Diagnosis Differential Diagnosis: differential diagnosis: Uncomplicated lower UTI, uncomplicated UTI, pyelonephritis Lab Data Labs: Lab Results 06/08/25 Range/Units 08:33 POC Urine Color Yellow POC Urine Clarity Cloudy POC Urine pH 5.5 POC Ur Specif [place] 1.030 POC Urine Protein 2+ (Negative) POC Ur Glucose (UA) Trace (Negative) POC Urine Ketones Trace (Negative) POC Urine Blood Trace (Negative) POC Urine Nitrite Negative (Negative) POC Urine Bilirubin 1+ (Negative) POC Urine Urobilinogen 0.2 POC U Leukocyte Esteras 1+ (Negative) Critical Care Time Critical Care Time Critical Care Time: No Discharge Plan Discharge Clinical Impression: Urinary tract infection Patient Disposition: Home Condition: Stable Instructions: Antibiotic Form, Urinary Tract Infection in Women (ED) Additional Instructions: We will send a urine culture off to the lab; if the culture identifies an organism that the prescribed antibiotic will not treat, you will receive a phone call from an urgent care staff member and an appropriate antibiotic will be prescribed. -Your symptoms should begin to improve within a day of starting antibiotics. But you should finish all the antibiotic pills you get. Otherwise your infection might come back. -Also recommend: drink more fluid. It might help flush out germs, and it does no harm -Tylenol/ibuprofen prn for pain or fever -Follow-up with your primary care provider for urine recheck or seek ER visit if condition worsens with high fever, nausea, vomiting and severe back pain. when taking a probiotic please look for at least a minimum of 10-12 strains and a minimum of 20-25 billion CFU Patient Language: Citizen Of [place] Prescriptions: New sulfamethoxazole-trimethoprim [Bactrim DS] 800-160 mg tablet 1 tablet PO Q12H 5 Days Qty: 10 0RF No Action zinc 50 mg tablet 50 mg PO DAILY multivitamin [Multiple Vitamins] Tablet 1 tablet PO DAILY calcium carbonate-vitamin D3 600 mg-5 mcg (200 unit) tablet 1 tablet PO DAILY cholecalciferol (vitamin D3) 50 mcg (2,000 unit) capsule 50 mcg PO DAILY cranberry fruit 400 mg capsule 400 mg PO DAILY Rx Instructions: administer with a meal citalopram 10 mg tablet 10 mg PO DAILY Qty: 90 0RF Prolia 60 mg/mL syringe See Rx Instructions .ROUTE .COMPLEX Qty: 1 4RF Dose Instruction: TO BE ADMINISTERED IN PHYSICIAN'S OFFICE. INJECT ONE SYRINGE SUBCUTANEOUSLY ONCE EVERY 6 MONTHS. REFRIGERATE. USE WITHIN 14 DAYS ONCE AT ROOM TEMPERATURE. Rx Instructions: TO BE ADMINISTERED IN PHYSICIAN'S OFFICE. INJECT ONE SYRINGE SUBCUTANEOUSLY ONCE EVERY 6 MONTHS. REFRIGERATE. USE WITHIN 14 DAYS ONCE AT ROOM TEMPERATURE. simvastatin 20 mg tablet 20 mg PO DAILY Qty: 90 3RF diclofenac sodium 75 mg tablet,delayed release (DR/EC) 75 mg PO BID Qty: 60 3RF Follow-up/Referrals: Tariq Coleman MD [Primary Care Provider, [facility]] Time of Disposition: 08:54
[2025-06-08 08:26] VITALS: BP 147/42; PULSE 66; RESP 16; TEMP 36.8; O2SAT 100
[2025-06-08 08:35] LABS: EDUAAPPEAR Cloudy; EDUABILI 1+ (Negative); EDUABLOOD Trace (Negative); EDUACOLOR1 Yellow; EDUAGLUCOSE Trace (Negative); EDUAKETONE Trace (Negative); EDUALEUKO 1+ (Negative); EDUANITRATE Negative (Negative); EDUAPH 5.5; EDUAPROTEIN 2+ (Negative); EDUASPGRAVITY 1.030; EDUAUROBILI 0.2
== END 2025-06-08 08:58 | disposition home or self-care (01) ==
PROVIDERS: Emergency Provider Nurse Practitioner Family; PCP Family Medicine Adolescent Medicine
DX: N39.0 Urinary tract infection, site not specified (principal); E78.00 Pure hypercholesterolemia, unspecified; Z85.3 Personal history of malignant neoplasm of breast; Z90.11 Acquired absence of right breast and nipple
CPT/HCPCS: 81003; 87086; 99213; G0463